=== PATIENT | male | born 1975 | race African-American/Black ===

== ENCOUNTER 2018-09-24 23:00 | Inpatient (IN) | payer OTHER ==
[~2018-09-24] VITALS: Ht 175.3 cm; Wt 65.0 kg
[2018-09-24 23:08] VITALS: Ht 175.3 cm; Wt 65.0 kg
--- NOTE | 2018-09-24 23:17 | NUR ---
PT HAS DISCREPANCY IN BLOOD PRESSURE IN EACH ARM MANUAL BP OF EACH UPPER EXTREMITY IN PROGRESS
--- NOTE | 2018-09-24 23:18 | NUR ---
88/58 MANUAL BP OF LEFT ARM BY ALISON HOWARD
--- NOTE | 2018-09-24 23:23 | NUR ---
88/60 LUE PER ALISON HOWARD
--- NOTE | 2018-09-24 23:23 | NUR ---
LAB AT BEDSIDE FOR BLOOD DRAW PT PROVIDED WITH WATER MD JACOBO STATED OKAY FOR PT TO HAVE WATER
--- NOTE | 2018-09-24 23:24 | NUR ---
PT PROVIDED WATER FOR HYDRATION IN ORDER TO GET PT TO PROVIDE URINE SAMPLE RUNNING BOLUS OF REMAINING FLUIDS PER MD BRACKEN TO INCREASE BP
--- NOTE | 2018-09-24 23:27 | NUR ---
PT PRESENTS TO ED VIA [facility] FROM HOME. 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 PER FAMILY PT HAS BEEN INCREASINGLY WEAK X2 DAYS HOWEVER THE LAST HOUR IT WAS MUCH WORSE. PT IS SPEAKING SLOW BUT IN COMPLETE SENTENCES. PT IS AXO X4. PT HAS EQUAL BUT LABORED CHEST RISE. 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 PT DENIES ANY PAIN AT THIS TIME. PT HAS YELLOWING OF THE WHITES OF THE EYES. PT DENIES ANY MEDICAL HX. PT ADMITS TO BEING A HEAVY DRINKER FOR MANY YEARS. PT DENIES DRINKING ANY ALOCOHOL TODAY PT ADMITS TO DRINKING MORE THAN 12 BEERS YESTERDAY. PT ALSO STATES HE SMOKES A PACK TO A HALF A PACK OF CIGARETTES A DAY FOR MORE THAN 15 YEARS. PT IS ALERT AND ORIENTED AND STATES HE IS UNSURE WHY HE FEELS SO WEAK. PT STATES LAST TIME HE WENT TO THE DR OFFICE WAS LAST YEAR.
--- NOTE | 2018-09-24 23:32 | NUR ---
PT SEEMS TO BE BECOMING INCREASINGLY MORE ALERT AND RESPONSIVE TO QUESTIONS. PT DRANK CUP OF WATER WITH EASE. BP SEEMS TO BE IMPROVING WITH FLUID ADMINISTRATION SEE VITALS
--- NOTE | 2018-09-24 23:33 | NUR ---
ALISON HOWARD AT BEDSIDE FOR MSE
--- NOTE | 2018-09-24 23:38 | NUR ---
XRAY AT BEDSIDE FAMILY AT BEDSIDE
[2018-09-24 23:45] LABS: BASOPHIL % 0.5 % (0-2)
--- NOTE | 2018-09-24 23:45 | NUR ---
DAD AT BEDSIDE
[2018-09-24 23:48] LABS: RED CELL DISTRIBUTION WIDTH 15.8 % (11.5-14.5)
[2018-09-24 23:51] LABS: PLATELET COUNT 27 x10^3mcL (130-400)
--- NOTE | 2018-09-25 00:01 | NUR ---
PT TAKEN TO RADIOLOGY
[2018-09-25 00:07] LABS: ALBUMIN 2.2 g/dL (3.4-5.0); ALKALINE PHOSPHATASE 55 U/L (46-116); ALT/SGPT 51 U/L (16-63); AST/SGOT 150 U/L (15-37); BILIRUBIN TOTAL 4.5 mg/dL (0.20-1.00); CALCIUM 7.7 mg/dL (8.5-10.1); CHLORIDE SERUM 95 mmol/L (98-107); CREATININE SERUM 2.4 mg/dL (0.7-1.3); GFR1 31 mL/min; GLUCOSE SERUM 200 mg/dL (74-106); SODIUM SERUM 133 mmol/L (136-145)
[2018-09-25 00:31] LABS: CARBON DIOXIDE 5.8 mmol/L (21-32)
--- NOTE | 2018-09-25 00:33 | NUR ---
DR JACOBO AT BEDSIDE TO DISCUSS PLAN OF CARE WITH PT
--- NOTE | 2018-09-25 01:15 | NUR ---
PT WENT POOP AND I TOLD MD JACOBO IT APPEARS TO BE BLACK AND TARRY OCCULT POOP SAMPLE WAS POSITIVE
--- NOTE | 2018-09-25 01:30 | NUR ---
PT COMPLAINING OF BEING REALLY DIZZY
--- NOTE | 2018-09-25 01:43 | NUR ---
MD JACOBO MADE AWARE OF PT TEMPERATURE AND LATEST BP
--- NOTE | 2018-09-25 01:43 | NUR ---
WARMING PROTOCOL BEING INITIATED
--- NOTE | 2018-09-25 02:08 | NUR ---
WARMING MEASURES IN PLACE MD JACOBO AT BEDSIDE DISCUSSING PLAN OF CARE WITH PT
[2018-09-25 02:14] LABS: UA SPECIFIC GRAVITY 1.025 (1.005-1.035); microscopic required? YES; urine erythrocyte 1+ (NEGATIVE)
--- NOTE | 2018-09-25 02:14 | NUR ---
PT TAKEN TO CT VIA [facility] ACCOMPANIED PT TO CT FOR FURTHER CARE AND MONITORING OF PT
[2018-09-25 03:05] LABS: CHOLESTEROL/HDL RATIO 12.5; MAGNESIUM 1.7 mg/dL (1.8-2.4)
[2018-09-25 03:13] LABS: FREE T4 0.94 ng/dL (0.76-1.46)
[2018-09-25 03:14] LABS: FREE THYROXINE INDEX 1.5 ug/dL (1.4-4.5); T4(THYROXINE) 4.3 ug/dL (4.7-13.3)
--- NOTE | 2018-09-25 03:17 | NUR ---
REPORT GIVEN TO LAURA HORTON
--- NOTE | 2018-09-25 03:35 | NUR ---
PT ARRIVED FROM ER ACCOMPANIED BY CLIFFORD GUTIERRES AND MILANA MADDEN. PT TRANSFERRED TO ICU BED 4 WITH FULL ASSIST TO BED, ATTACHED TO FULL RESPIRATORY CARE ASSISTANT AND PULSE OXIMETRY. PT AOX4 ABLE TO RESPOND TO COMMANDS, MAKE NEEDS KNOWN. GCS=15. PUPILS 3MM BRISK RESPONSE TO LIGHT B/L. NO REPORTED BARNETT, SPEECH CLEAR. NO FACIAL DROOP.TRACHEA MIDLINE, NO DRAINAGE TO EENT. NO EENT COMPLAINTS. PT HAS ICETRUS NOTED TO B/L EYES.LUNG SOUNDS CTAB, CHEST RISE/FALL SYMMETRIC, E/U BREATHING, NO ACUTE DISTRESS, DENIES SOB. NO COUGH. ON ROOM AIR.S1/S2 SOUNDS. DENIES CHEST PAIN.SKIN COLOR CONSISTENT WITH ETHNICITY, CAP REFILL <3 SEC X4, PULSES MODERATE X4 EXTREMITIES. NO EDEMA. LACTATED RINGERS INFUSING @ 250 ML/HR, VANCOMYCIN 1G IV INFUSING @ 166 ML/HR, SANDOSTATIN GTT INFUSING @ 50 MCG/HR FROM ER.GEN WEAKNESS, NO CONTRACTURES/DEFORMITIES NOTED. PT ABLE TO TURN AND REPOSITION SELF Q2H WITH ASSISTANCE. NO JOINT SWELLING OR TENDERNESS. BED REST AT THIS TIME. WARMING MEASURES INPLACE FOR PT'S RECTAL TEMP OF 93.0, WARMING BLANKET INPLACE. DR. RIBERA MADE AWARE.HYPOACTIVE BOWEL SOUNDS X4 QUADRANTS, ABD SOFT/ROUND, SYMMETRICAL. PT REPORTS LOOSE BM DARK STOOL IN ER.PT REPORTS BEING ABLE TO VOID WHEN IN ER, NO URINE AT THIS TIME. NO PENILE EDEMA OR DISCHARGE NOTED.SKIN INTACT, COOL/DRY TO TOUCH X4 EXTREMITIES. IV TO LEFT WRIST 22G, RAC 20 G, PORTS PATENT, NO S/S OF INFILTRATION, DRESSING CDI.PT CALM/COOPERATIVE WITH CARE. FAMILY SUPPORTIVE. HEAVY ALCOHOL ABUSE. NPO AT THIS TIME. NO S/S OF N/V. BED AT LOWEST SETTING, CALL LIGHT WITHIN REACH, HOB EELVATED 30 DEGREES. WILL CONT TO MONITOR.
--- NOTE | 2018-09-25 03:42 | NUR ---
DR. VALERO AND DR. BLANDON AT BEDSIDE FOR ASSESSMENT, SPEAKING WITH PT ON POC.
[2018-09-25 04:05] VITALS: BP 98/43
[2018-09-25 04:29] LABS: T3 TOTAL 0.47 ng/mL
--- NOTE | 2018-09-25 04:40 | NUR ---
IV INITIATED TO LFA 20G, PORT PATENT NO S/S OF INFILTRATION, DRESSING CDI, FLUSHED WITH 10 ML OF NS, +BLOOD RETURN.
--- NOTE | 2018-09-25 04:45 | NUR ---
ONE UNIT OF FFP INITIATED AT THIS TIME, VERIFIED BY 2 RNS. SEE BLOOD TRANSFUSION SHEET FOR VITALS. PT EDUCATED ON NOTIFYING NURSING STAFF OF ANY ADVERSE BLOOD TRANSFUSION ADVERSE REACTIONS.
--- NOTE | 2018-09-25 06:02 | NUR ---
DR. ROSENBERG AT BEDSIDE FOR ASSESSMENT. UPDATES PROVIDED, NO NEW ORDERS.
--- NOTE | 2018-09-25 06:10 | NUR ---
PT RECTAL TEMP 98.7 AT THIS TIME. WARMING MEASURES TURNED OFF, WARMING BLANKET REMOVED. DR. ROSENBERG MADE AWARE.
--- NOTE | 2018-09-25 06:12 | NUR ---
PT VOMITTED 200 CC OF DARK BROWN LIQUID, APPEARS TO BE COFFEE GROUND. GIVEN ZOFRAN PER EMAR. DR. ROSENBERG MADE AWARE AT NURSING STATION.
--- NOTE | 2018-09-25 06:50 | NUR ---
ONE UNIT FFP DONE AT THIS TIME. NO S/S OF ANY ADVERSE TRANSFUSION REACTION. SEE BLOOD TRANSFUSION RECORD FOR VITAL SIGNS.
--- NOTE | 2018-09-25 07:14 | NUR ---
GAVE REPORT TO CLIFFORD MULTANI. UPDATES GIVEN, QUESTIONS ANSWERED.
[2018-09-25 07:45] VITALS: BP 109/58
[2018-09-25 07:49] LABS: BILIRUBIN TOTAL 3.83 mg/dL (0.20-1.00); CALCIUM 6.5 mg/dL (8.5-10.1); CARBON DIOXIDE 15.5 mmol/L (21-32); CREATININE SERUM 1.7 mg/dL (0.7-1.3); MAGNESIUM 1.3 mg/dL (1.8-2.4); PHOSPHOROUS 2.2 mg/dL (2.5-4.9); POTASSIUM SERUM 4.6 mmol/L (3.5-5.1); TOTAL PROTEIN, SERUM 6.3 g/dL (6.4-8.2)
[2018-09-25 07:53] LABS: ALBUMIN 2.3 g/dL (3.4-5.0)
--- NOTE | 2018-09-25 08:17 | NUR ---
LAB CALLED WITH CRITICAL VALUE LACTIC ACID 9.7 WHICH IS TRENDING DOWN. WILL CONTINUE TO MONITOR.
--- NOTE | 2018-09-25 08:20 | NUR ---
PT HAD 1 EPISODE OF 400 ML DARK, COFFEEGROUND-LIKE EMESIS INTO EMESIS BAG.
--- NOTE | 2018-09-25 08:30 | NUR ---
RN ASSISTED PT ONTO BEDPAN. BLACK, TARRY STOOL NOTED.
--- NOTE | 2018-09-25 09:06 | NUR ---
RECEIVED CALL FROM ROSE, REQUESTED THAT PT REMAIN NPO FOR POSSIBLE EGD TODAY. WILL CARRY OUT.
--- NOTE | 2018-09-25 09:47 | NUR ---
DR. YEBOAH, RESIDENTS, SPECIAL EFFECTS MAKEUP ARTIST AND PRIMARY RN AT BEDSIDE FOR MORNING ROUNDS. PLAN OF CARE DISCUSSED WITH PT. WILL CONT TO MONITOR.
[2018-09-25 10:56] LABS: RED CELL DISTRIBUTION WIDTH 15.1 % (11.5-14.5)
[2018-09-25 10:58] LABS: PLATELET COUNT 51 x10^3mcL (130-400)
--- NOTE | 2018-09-25 11:42 | NUR ---
LAB CALLED WITH CRITICAL VALUE LACTIC ACID 6.8, TRENDING DOWN. WILL CONTINUE TO MONITOR.
[2018-09-25 12:00] VITALS: BP 105/63
--- NOTE | 2018-09-25 12:36 | NUR ---
DR. ROSE AND GI LAB TEAM COMPLETED EGD PROCEDURE. PT TOLERATED PROCEDURE WELL. WILL CONTINUE TO ASSESS AND MONITOR.
[2018-09-25 13:33] LABS: PATH REVIEW for HEMA YES
[2018-09-25 13:34] LABS: BAND NEUTROPHIL 8 % (0-10); MONOCYTE 9 % (0-7); SEGMENTED NEUTROPHILS 71 % (37-75)
[2018-09-25 13:35] LABS: PLATELET MORPHOLOGY LARGE PLATELET SEEN; rbc morphology (normal/abnorm) ABNORMAL (NORMAL)
--- NOTE | 2018-09-25 14:30 | NUR ---
CALLED DR. ROSE, LAB RESULTS PROVIDED. DR. ROSE REQUESTED THAT PT BE KEPT STRICT NPO.
[2018-09-25 14:39] LABS: AMPHETAMINE QUAL UR NONE DETECTED (See below)
[2018-09-25 15:50] VITALS: BP 120/72
--- NOTE | 2018-09-25 19:05 | NUR ---
RECEIVED REPORT FROM NERISSA HORTON AND ESTRELLITA HORTON. ASSUMING ALL CARE
[2018-09-25 19:45] VITALS: BP 107/65
--- NOTE | 2018-09-25 19:45 | NUR ---
RECEIVED PT LAYING IN BED. PT IS A/OX2, PT KNOWS HIS NAME AND LOCATION. PT ABLE TO FOLLOW SIMPLE COMMANDS AND MAKE NEEDS KNOWN. PUPILS WITH BRISK REACTION TO LIGHT, 3MM BILAT. EENT FREE OF DISCHARGE. ORAL MUCOSA PINK AND MOIST. NO JVD NOTED. EATHING IS E/U ON 2 LPM VIA NC. FINE CRACKLES NOTED TO BUL AND DIMIN BLL. SYMMETRICAL CHEST EXPANSION NOTED. S1/S2 HEART SOUNDS AUSCULTATED. CHEST WALL EQUAL AND SYMMETRICAL. HR 92, BP 107/57 MAP 77. PALPABLE PULSES X4 EXTREMITIES. SKIN IS WARM AND DRY. CAP REFILL < 3 SECS. NO EDEMA NOTED. LFA, LW, RAC IV IN PLACE. 0.45 NS WITH 1.2 AMPS OF BICARB INFUSING @ 100 ML/HR, PROTONIX GTT INFUSING @ 20 ML/HR. GENERALIZED WEAKNESS. PT ABLE TO REPOSITION SELF INDEPENDENTLY. NO JOINT SWELLING/DEFORMITY NOTED. PT IS NPO AT THIS TIME. ABD IS SOFT, ROUND, NONTENDER TO PALPATION. BOWEL SOUNDS ACTIVE X4 BOWEL SOUNDS HYPOACTIVE X4 QUADRANTS. NO BM NOTED. PT VOIDS FREELY VIA URINAL. NO SCROTAL EDEMA NOTED. ECCHYMOSIS NOTED TO RUE. PT ABLE TO REPOSITION SELF INDEPENDENTLY. IS CALM AT THIS TIME. BED IN LOW POSITION. CALL LIGHT IN REACH. WILL CONT TO MONITOR
--- NOTE | 2018-09-25 22:38 | NUR ---
PT IS RESTLESS AT THIS TIME, NOTED WITH TREMORS. PT REMOVING LINES, GOWN, AND EQUIPMENT. PT MEDICATED WITH ATIVAN PER EMAR. WILL CONT TO MONITOR
[2018-09-25 23:30] VITALS: BP 116/74
--- NOTE | 2018-09-26 01:17 | NUR ---
PT IS RESTLESS AT THIS TIME WITH NOTED TREMORS. PT MEDICATED WITH ATIVAN PER EMAR
[2018-09-26 03:09] VITALS: BP 130/81
--- NOTE | 2018-09-26 04:15 | NUR ---
PT WAS INCONTINENT X2. 16 FR NORRIS CATH PLACED AT THIS TIME PER MD ORDER USING STERILE TECHNIQUE. 250 ML OF PEEWEE COLORED URINE NOTED.
[2018-09-26 05:27] LABS: BASOPHIL % 2.5 % (0-2); PLATELET COUNT 19 x10^3mcL (130-400); RED CELL DISTRIBUTION WIDTH 14.8 % (11.5-14.5)
--- NOTE | 2018-09-26 06:15 | NUR ---
SPOKE TO PT'S DAUGHTER CELINE VIA TELEPHONE. UPDATED ON PT'S STATUS. ALL QUESTIONS/CONCERNS ADDRESSED.
--- NOTE | 2018-09-26 07:05 | NUR ---
REPORT GIVEN TO MADINA HORTON. ALL QUESTIONS/CONCERNS ADDRESSED AT THIS TIME. ENDORSING ALL CARE
[2018-09-26 07:28] LABS: ALBUMIN 2.3 g/dL (3.4-5.0); ALKALINE PHOSPHATASE 40 U/L (46-116); ALT/SGPT 96 U/L (16-63); AST/SGOT 270 U/L (15-37); CALCIUM 7.7 mg/dL (8.5-10.1); CARBON DIOXIDE 31.7 mmol/L (21-32); CHLORIDE SERUM 106 mmol/L (98-107); GFR1 > 60 mL/min; GLUCOSE SERUM 95 mg/dL (74-106); POTASSIUM SERUM 3.5 mmol/L (3.5-5.1); SODIUM SERUM 141 mmol/L (136-145); TOTAL PROTEIN, SERUM 6.6 g/dL (6.4-8.2)
[2018-09-26 07:53] VITALS: BP 126/88
[2018-09-26 12:15] VITALS: BP 132/80
--- NOTE | 2018-09-26 13:15 | NUR ---
Initial Nutrition Assessment: (IC04-A) HAYLEY GRAVES 43M Dx: Lactic acidosis, AMS, Gastrointe PMHx: Color blindness, Chronic alcoholism PSHx: None Labs: Alb 2.3 L, Ca 7.7 L, Bili T 4.2 H, AST 270 H, ALT 96 H, Alk Phos 40 L, LDH 380 H, Trig 164 H, HDL 10 L, Amylase 140 H, BNP 634.03 H, T4 4.3 L, TSH 5.5 H, PT 20.3 H, INR 2.1 H, PTT 35.6 H Meds: Cephulac, Folic acid, Phenergan, Pro-amatine, Protonix, Theragran, Vancomycin, Vit B1, Zofran Diet: NPO (pending EGD) PO intake since admission: NPO since admit Ht: 69in Wt: 143# BMI: 21.2 Bed scale: 153.7# IBW: 160# %IBW: 89% UBW: 170# Age: 43 Food Allergies: NKFA Skin: ecchymosis RUE, able to reposition self independently Deepak: 14 Edema: no edema noted GI: Abd soft, round, nontender to palpation, BS active x4 Last BM: 09/25, black tarry stool morning RD Note (09/26): Nursing trigger received for N/V/D >3d, poor PO >3d. Noted wt log 170# 09/24. Visited pt bedside, heavily slurred speech, pt noted w/ some missing teeth. Pt expressed he has poor appetite, but wants to know when he can start eating. GI eval planned via previous MD consult. Pt noted on aspiration precautions and fluid resuscitation. Pt initially may need intubation, but significantly improved since admission. Pt assessed w/ septic shock, alcohol cirrohosis, GI bleed per previous MD consult, monitored for alcohol withdrawal. Pt has noticed wt loss, states about 40# in past 3 months, UBW 170#. Pt noted 143# 09/26, 154# (bedscale) at this time. Problem with: N/V/D Problems with: Chewing: No Swallowing: No Current appetite: poor Recent wt change: -40# x 3mo, per pt %wt change: 23.5% Vitamin/Supplement use: No Special diet at home: Regular Physical activity: N/A Nutrition education given (specify specific nutrition education and handout given): None given at this time. Food-drug interactions? Education given? None given at this time. Estimated Nutritional Needs Based on current body weight (65kg) Energy: 4230-5909 kcal/day (30-35 kcal/kg to promote moderate wt gain, septic shock) Protein: 78-91 g/day (1.2-1.4 g/kg to preserve lean body mass) Fluid: 3034-2505 mL/day (1 mL/kcal) or per MD Nutrition Diagnosis: 1. Altered nutrition-related lab values r/t lactic acidosis, EtOH withdrawal, GI bleed AEB Bili T 4.2, AST 270, ALT 96, Alk Phos 40, LDH 380, Trig 164, HDL 10, Amylase 140, TSH 5.5, PT 20.3, INR 2.1 2. Altered GI function r/t GI bleed AEB NPO status since admission Intervention 1. Continue current plan of care and NPO until clear for diet per MD. Monitor/Evaluate Goal: PO intake at least 75% of estimated needs Monitor: PO intake, Labs, GI function F/U in 3-5 days as moderate risk 09/29-10/01
--- NOTE | 2018-09-26 13:16 | NUR ---
Recommendations: 1. Continue current plan of care and NPO until clear for diet per MD.
--- NOTE | 2018-09-26 14:46 | NUR ---
DR. COONEY (NEPHRO) AT BEDSIDE, ALL UPDATES PROVIDED, NO NEW ORDERS AT THIS TIME.
[2018-09-26 15:52] VITALS: BP 111/80
--- NOTE | 2018-09-26 17:14 | NUR ---
PATIENT HAS NOT BEEN ABLE TO DRINK TODAY. BLOODD SUGAR ASSESSED, AND STABLE READING 95. ENCOURAGED PATIENT TO DRINK FLUIDS. PATIENT ATTEMPTING TO DRINK FLUIDS AT THIS TIME. WILL CONTINUE TO MONITOR.
--- NOTE | 2018-09-26 19:09 | NUR ---
REPORT GIVEN TO CLIFFORD COYLE ALL QUESTIONS ANSWERED.
--- NOTE | 2018-09-26 19:30 | NUR ---
RECEIVED REPORT FROM CLIFFORD ALVAREZ. PT IS ALERT AND ORIENTED TO PERSON. PT HAS GARBLED SPEECH. PUPILS REACTIVE TO LIGHT. PT IS BREATHING E/U ON 3 L NC. S1 S2 HEART SOUNDS AUSCULTATED. LUNG SOUNDS CLEAR TO BILATERAL UPPER LOBES, DIMINISHED TO BILATERAL LOWER LOBES. PERIPHERAL IV TO LEFT FA, LEFT WRIST, RIGHT FA PATENT DRESSING CDI. 45% NS INFUSING AT 50 ML/HR, SODIUM BICARB INFUSING AT 100 ML/HR, AND PROTONIX INFUSING AT 10 ML/HR. PULSES MODERATE X4. CAP REFILL <3 SECONDS X4. SKIN WARM AND CONSISTENT WITH ETHNICITY. ABD IS SOFT AND FLAT WITH ACTIVE BOWEL SOUNDS. NORRIS DRAINING VIA GRAVITY. URINE IS YELLOW WITH FAIR OUTPUT. SCD IN PLACE. ALL QUESTIONS AND CONCERNS ANSWERED.
--- NOTE | 2018-09-26 21:00 | NUR ---
DR. SHEPARD AT BEDSIDE FOR UPDATES. ALL QUESTIONS AND CONCERNS ANSWERED.
[2018-09-27 04:55] LABS: RED CELL DISTRIBUTION WIDTH 15.6 % (11.5-14.5)
[2018-09-27 04:57] LABS: BASOPHIL % 2.1 % (0-2); PLATELET COUNT 16 x10^3mcL (130-400)
[2018-09-27 05:06] LABS: CALCIUM 7.7 mg/dL (8.5-10.1); CHLORIDE SERUM 102 mmol/L (98-107); CREATININE SERUM 0.9 mg/dL (0.7-1.3); GFR1 > 60 mL/min; GLUCOSE SERUM 83 mg/dL (74-106); SODIUM SERUM 141 mmol/L (136-145)
[2018-09-27 05:12] LABS: MAGNESIUM 1.6 mg/dL (1.8-2.4)
[2018-09-27 05:22] LABS: POTASSIUM SERUM 2.8 mmol/L (3.5-5.1)
--- NOTE | 2018-09-27 06:00 | NUR ---
PT HAD LOOSE DARK TARRY BM.ALL LINENS AND GOWN CHANGED. COLLECTED URINE CULTURE FOR URINALYSIS.
--- NOTE | 2018-09-27 06:39 | NUR ---
DR. CLARKE AT BEDSIDE FOR UPDATES. ALL QUESTIONS AND CONCERNS ANSWERED.
[2018-09-27 07:10] VITALS: BP 126/84
--- NOTE | 2018-09-27 07:10 | NUR ---
RECEIVED REPORT FROM LEONIDES HORTON. ALL QUESTIONS AND CONCERNS ADDRESSED. WILL RESUME CARE OF PT.
--- NOTE | 2018-09-27 07:31 | NUR ---
REPORT GIVEN TO RINA. ALL QUESTIONS AND CONCERNS ANSWERED.
[2018-09-27 07:40] LABS: microscopic required? YES; urine erythrocyte 2+ (NEGATIVE)
--- NOTE | 2018-09-27 10:05 | NUR ---
DR. YEBOAH AND RESIDENTS AT BEDSIDE ASSESSING PT. UPDATES PROVIDED. PT CAN BE TRANSFERRED TO TELE.
--- NOTE | 2018-09-27 11:16 | NUR ---
REPORT GIVEN TO REBEKAH HORTON. ALL QUESTIONS AND CONCERNS ADDRESSED. PT WILL BE GOING TO 242-A VIA BED.
--- NOTE | 2018-09-27 12:11 | NUR ---
PATIENT BEING TRANSFERRRED TO ROOM 242A. PATIENT REMOVED FROM ICU ADOBE CQ DEVELOPER AND PLACED ON TELE. PATIENT BEING TRANSFERRED WITH MEDS AND PERSONAL BELONGINGS (INCLUDING WALLET AND CELL PHONE) AT THIS TIME.
[2018-09-27 12:15] VITALS: BP 128/88
--- NOTE | 2018-09-27 12:15 | NUR ---
RECEIVED PT FROM ICU NURSE DROWSY. NO ACUTE DISTRES NOTED. TEMP 97.6 HR 71 BP 128/88 RR 17. RESP EVEN AND UNLABORED ON RA. 02 SAT 95% IVS INTACT AND PATENT. BED IN LOW POSITION. CALL LIGHT WITHIN REACH. WILL CONTINUE TO MONITOR.
--- NOTE | 2018-09-27 15:45 | NUR ---
PT RESTING IN BED TALKING WITH FAMILY MEMBERS. NO ACUTE DISTRESS NOTED. CALL LIGHT WITHIN REACH. WILL CONTINUE TO MONITOR.
[2018-09-27 16:47] VITALS: BP 157/104
[2018-09-27 18:00] VITALS: BP 125/62
--- NOTE | 2018-09-27 18:34 | NUR ---
PT LYING IN BED WITH NO ACUTE DISTRESS NOTED. IVS INTACT AND PATENT. NORRIS CATH IN PLACE DRAINING PEEWEE URINE. FAMILY MEMBER AT BEDSIDE. BED IN LOW POSITION. CALL LIGHT WITHIN REACH. WILL BE ENDORSED.
--- NOTE | 2018-09-27 19:20 | NUR ---
REC'D PT FROM DAY NURSE. PT RESTING IN BED WITH EYES CLOSED. DROWSY. AWAKENS WITH TACTILE STIMULI. ORIENTED TO SELF AND PLACE ONLY. REORIENTED TO TIME AND SITUATION. SPEECH GARBLED AND DIFFICULT TO UNDERSTAND. FOLLOWS COMMANDS. NO FACIAL DROOP. TELE 1. DENIES CP, DIZZINESS, OR PALPITATIONS. DENIES RESP DISTRESS OR SOB. BREATHING EVEN/UNLABORED ON RA. ABD SOFT/ROUND/NONTENDER. NORRIS DRAINING PEEWEE URINE TO GRAVITY. GEN WEAKNESS. ABLE TO MOVE EXTREMITIES AND REPOSITION SELF. IV TO LFA PATENT AND INFUSING. IV TO LW FLUSHED AND PATENT. SOME DRY BLOODY DRAINAGE TO LFA. CALL LIGHT WITHIN REACH, BED AT LOWEST POSITION. WILL CONTINUE TO MONITOR.
--- NOTE | 2018-09-27 20:22 | NUR ---
DR. WALLS AT NURSE'S STATION. WANTS TO CHECK POTASSIUM NOW. SPOKE TO DR. PATTERSON AND MADE AWARE. ALSO INFORMED OF MG 1.6 AND PHOS 2.0.
[2018-09-27 20:39] VITALS: BP 116/77
[2018-09-27 21:24] LABS: CALCIUM 7.4 mg/dL (8.5-10.1); CARBON DIOXIDE 32.5 mmol/L (21-32); CHLORIDE SERUM 102 mmol/L (98-107); CREATININE SERUM 0.8 mg/dL (0.7-1.3); GFR1 > 60 mL/min; GLUCOSE SERUM 75 mg/dL (74-106); SODIUM SERUM 138 mmol/L (136-145)
[2018-09-27 21:27] LABS: POTASSIUM SERUM 2.7 mmol/L (3.5-5.1)
--- NOTE | 2018-09-28 00:38 | NUR ---
REC'D CALL FROM DR. WALLS. INFORMED OF K 2.7 WITH 40 MEQ KCL CURRENTLY INFUSING. INSTRUCTED TO ORDER ANOTHER 20 MEQ IV AND RECHECK IN AM. AM BMP ALREADY ORDERED. DR. PATTERSON MADE AWARE VIA [employer].
--- NOTE | 2018-09-28 01:49 | NUR ---
PT HAD LARGE, LIQUID BLACK STOOL. PT CLEANED AND CHANGED. NORRIS CARE PROVIDED. PT STILL HAS GARBLED/INCOMPREHENSIBLE SPEECH. BREATHING EVEN/UNLABORED ON RA. CA. CALL LIGHT WITHIN REACH, BED AT LOWEST POSITION. WILL CONTINUE TO MONITOR.
--- NOTE | 2018-09-28 02:32 | NUR ---
PT RESTING IN BED WITH EYES CLOSED. QUIETLY SNORING. NO SIGNS OF DISTRESS NOTED. BREATHING EVEN/UNLABORED ON RA. CALL LIGHT WITHIN REACH, BED AT LOWEST POSITION.
[2018-09-28 05:30] VITALS: BP 115/81
[2018-09-28 05:46] LABS: CARBON DIOXIDE 31.1 mmol/L (21-32); CHLORIDE SERUM 103 mmol/L (98-107); CREATININE SERUM 0.7 mg/dL (0.7-1.3); GFR1 > 60 mL/min; GLUCOSE SERUM 76 mg/dL (74-106); MAGNESIUM 1.7 mg/dL (1.8-2.4); PHOSPHOROUS 2.7 mg/dL (2.5-4.9); POTASSIUM SERUM 3.5 mmol/L (3.5-5.1); SODIUM SERUM 139 mmol/L (136-145)
--- NOTE | 2018-09-28 06:33 | NUR ---
PT AWAKE AND RESTING IN BED. HR UP TO 140'S. PT WAS ATTEMPTING TO GET OOB. STATES HE WANTS TO USE THE RESTROOM AND WON'T MAKE IT TO THE URINAL. REORIENTED PT TO NORRIS CATHETER. PT MORE AWAKE. SPEECH REMAINS GARBLED BUT MORE COMPREHENSIBLE. BREATHING EVEN/UNLABORED ON RA. NO SIGNIFICANT CHANGES. CALL LIGHT WITHIN REACH, BED AT LOWEST POSITION, SIDE RAILS UP X3, BED ALARM ON. WILL ENDORSE TO DAY NURSE.
--- NOTE | 2018-09-28 07:15 | NUR ---
RECEIVED PT FROM SHIFT NURSE A/OX2 RESTING IN BED. NO ACUTE DISTRESS. IVS INTACT AND PATENT. NORRIS CATH IN PLACE. BED IN LOW POSITION. CALL LIGHT WITHIN REACH. WILL CONTINUE TO MONITOR.
[2018-09-28 07:30] LABS: RED CELL DISTRIBUTION WIDTH 15.7 % (11.5-14.5)
[2018-09-28 07:33] LABS: PLATELET COUNT 17 x10^3mcL (130-400)
--- NOTE | 2018-09-28 07:40 | NUR ---
MADE DR. CLARKE AWARE OF PLT 17.
[2018-09-28 08:25] VITALS: BP 123/75
--- NOTE | 2018-09-28 09:28 | NUR ---
PT AWAKE LYING IN BED. NO ACUTE DISTRESS NOTED. CALL LIGHT WITHIN REACH. WILL CONTINUE TO MONITOR.
[2018-09-28 10:44] LABS: BAND NEUTROPHIL 9 % (0-10); BASOPHIL 0 % (0-2); MONOCYTE 10 % (0-7)
[2018-09-28 10:45] LABS: SEGMENTED NEUTROPHILS 50 % (37-75)
[2018-09-28 10:48] LABS: PLATELET MORPHOLOGY PLATELETS DECREASED; rbc morphology (normal/abnorm) ABNORMAL (NORMAL)
[2018-09-28 10:49] LABS: target cell (codocyte) 1+
--- NOTE | 2018-09-28 12:54 | NUR ---
PT ASLEEP BUT AROUSABLE. NO ACUTE DISTRESS NOTED. CALL LIGHT WITHIN REACH. WILL CONTINUE TO MONITOR.
--- NOTE | 2018-09-28 15:22 | NUR ---
PT AWAKE LYING IN BED. NO ACUTE DISTRESS NOTED. CALL LIGHT WITHIN REACH. WILL CONTINUE TO MONITOR.
--- NOTE | 2018-09-28 18:17 | NUR ---
PT REMOVED IV FROM LFA. INSERTED NEW IV TO LFA 20G. IV INTACT AND PATENT. WILL CONTINUE TO MONITOR.
--- NOTE | 2018-09-28 18:23 | NUR ---
PT ASLEEP BUT AROUSABLE. NO ACUTE DISTRESS NOTED. IVS INTACT AND PATENT. NORRIS CATH IN PLACE. FALL PRECAUTIONS IN PLACE. BED ALARM ON. BED IN LOW POSITION. CALL LIGHT WITHIN REACH. WILL BE ENDORSED.
--- NOTE | 2018-09-28 19:20 | NUR ---
REC'D PT FROM DAY NURSE. PT RESTING IN BED WITH EYES CLOSED. DROWSY/LETHARGIC. OPENS EYES TO VERBAL STIMULI. SCLERA YELLOW TINGED. ORIENTED TO SELF AND PLACE. GARBLED, INCOMPREHENSIBLE SPEECH. VERY DIFFICULT TO UNDERSTANDING. FOLLOWS COMMANDS. TELE 1. DENIES CP, DIZZINESS, OR PALPITATIONS. DENIES RESP DISTRESS OR SOB. BREATHING EVEN/UNLABORED ON RA. ABD SOFT/ROUND. NO GRIMACE WITH PALPATION. NORRIS DRAINING PEEWEE URINE TO GRAVITY. GEN WEAKNESS. ABLE TO MOVE EXTREMITIES. PT EVAL. IV TO RFA AND LW PATENT AND INFUSING. IV TO LFA FLUSHED AND PATENT. SITES WNL. CALL LIGHT WITHIN REACH, BED AT LOWEST POSITION, BED ALARM ON, SIDE RAILS UP X3. WILL CONTINUE TO MONITOR.
[2018-09-28 20:28] VITALS: BP 138/85
--- NOTE | 2018-09-28 21:37 | NUR ---
PT AWAKE AND RESTING IN BED. DUE MEDS GIVEN. PT DRANK ONLY HALF OF THE LACTULOSE AND REFUSED THE OTHER HALF. REINFORCED PURPOSE OF AMMONIA AND INFORMED AMMONIA LEVEL MIGHT INCREASE IF PT DOES NOT TAKE THE LACTULOSE ORDERED. PT WAS TELLING ME TO DRINK THE LACTULOSE INSTEAD PT CURRENTLY DRINKING ENSURE AT BEDSIDE. WILL CONTINUE TO MONITOR.
--- NOTE | 2018-09-29 00:53 | NUR ---
PT RESTING IN BED WITH EYES CLOSED. NO SIGNS OF DISTRESS NOTED. BREATHING EVEN/UNLABORED ON RA. HOB UP 60 DEGREES. CALL LIGHT WITHIN REACH, BED AT LOWEST POSITION, BED ALARM ON. WILL CONTINUE TO MONITOR.
[2018-09-29 06:09] VITALS: BP 132/80
--- NOTE | 2018-09-29 06:09 | NUR ---
PT AWAKE AND RESTING IN BED. NO SIGNS OF DISTRESS NOTED. BREATHING EVEN/UNLABORED ON RA. PT AGREEABLE TO TAKE LACTULOSE THIS AM. SPEECH GARBLED BUT ABLE TO UNDERSTAND A BIT BETTER. SPEECH APPROPRIATE. NORRIS CARE PROVIDED. NO SIGNIFICANT CHANGES DURING SHIFT. CALL LIGHT WITHIN REACH, BED AT LOWEST POSITION, SIDE RAILS UP X3, BED ALARM ON. WILL ENDORSE TO DAY NURSE.
[2018-09-29 06:49] LABS: BASOPHIL % 0.9 % (0-2)
--- NOTE | 2018-09-29 06:54 | NUR ---
ASSISTED PT TO BSC TO HAVE BM. PT VERY UNSTEADY AND REQUIRED 2 PERSON ASSIST. LARGE LIQUID BLACK STOOL. PT BACK IN BED SAFELY.
[2018-09-29 07:12] LABS: PLATELET COUNT 20 x10^3mcL (130-400); RED CELL DISTRIBUTION WIDTH 16.1 % (11.5-14.5)
[2018-09-29 07:18] LABS: CALCIUM 8.6 mg/dL (8.5-10.1); CARBON DIOXIDE 30.6 mmol/L (21-32); CHLORIDE SERUM 101 mmol/L (98-107); CREATININE SERUM 0.8 mg/dL (0.7-1.3); GFR1 > 60 mL/min; GLUCOSE SERUM 79 mg/dL (74-106); MAGNESIUM 1.4 mg/dL (1.8-2.4); PHOSPHOROUS 3.6 mg/dL (2.5-4.9); POTASSIUM SERUM 3.5 mmol/L (3.5-5.1); SODIUM SERUM 140 mmol/L (136-145)
--- NOTE | 2018-09-29 07:22 | NUR ---
REPORT TAKEN FROM NEWS PRODUCTION SUPERVISOR NURSE AT THE BEDSIDE. PT RESTING, BUT WOKE FOR REPORT. IN NAD, DENIED PAIN. WILL CONTINUE TO MONITOR.
[2018-09-29 09:13] VITALS: BP 107/78
[2018-09-29 12:03] VITALS: BP 131/81
--- NOTE | 2018-09-29 14:34 | NUR ---
Follow-up Nutrition Assessment: ([id number]) HAYLEY GRAVES 43M Dx: Lactic acidosis, AMS, Gastrointe PMHx: Color blindness, chronic alcoholism Labs: BUN 6.0 L, Alb 2.3 L, Bili T 4.2 H, AST 270 H, ALT 96 H, Alk Phos 40 L, LDH 380 H, Trig 164 H, Mg 1.4 L, BNP 634.03 H, T4 4.3 L, TSH 5.5 H, PT 20.3 H, INR 2.1 H, PTT 35. 6 H Meds: Cephulac, Folic Acid, Mag-Ox, Mg Sulfate, Phenergan, Protonix, Theragran, Vncomycin, VitB1, Zofran, Diet: Full Liquid PO Intake: 65% (improving) Weights: 143# (09/27) 143# (09/26) 141# (09/25) 170# (09/24) I/Os: 120/1000 (09/30) 2630/3401 (09/29) 2170/2150 (09/28) 3497/3650 (09/27) Skin: Deepak: 14 Edema: none noted GI: Last BM: 09/28 RD Note (09/29): Consult received to evaluate nutrition status. Per GI consult, s/p EGD showed two Mallor Cárdenas tear (lower esophagus). Per previous MD progress note, pt w/ severe malnutrition - Alb 2.2, BMI 20.8. Ca and Phos levels now WNL, Mg continues to be low; BUN 14, Cr 1.7 H. Kidney function improving Nephrology. Per previous MD progress note CT abd, pt w/ mild cirrhosis, possible infectious colitis. Noted pt started on full liquid diet 09/26. Visited pt bedside, states appetite is good, but he just becomes full quickly. Pt denies any abd pain, chewing/swallowing difficulty or pain, and N/V/D/C at this time. Pt is requesting no dairy r/t indigestion. Pt would like to know when he can eat 'real food', explained to pt the reason for his full liquid diet order r/t upper GI bleed/recovery. Spoke w/ social work assistant Tri regarding pt having some questions regarding his health insurance. Estimated Nutritional Needs Based on current body weight (65 kg) Energy: 6411-2101 kcal/day (30-35 kcal/kg to promote moderate wt gain) Protein: 78-91 g/day (1.2-1.4 g/kg to preserve LBM) Fluid: 5705-2487 mL/day (1 mL/kcal) or per MD Nutrition Diagnosis: 09/26: Altered nutrition-related lab values r/t lactic acidosis, EtOH withdrawal, GI bleed, AEB Bili T 4.2, AST 27, ALT 96, Alk Phos 40, LDH 380, Trig 164, HDL 10, Amylase 140, TSH 5.5, PT 20.3 , INR 2.1 09/26: Altered GI function r/t GI bleed AEB NPO status since admission 09/29: Altered GI function r/t upper GI bleed AEB Libia Cárdenas Tear x2, need for Full liquid diet. Intervention: 1. Continue current plan of care and Full Liquid diet, advance per MD Monitor/Evaluate: Goal: Have pt meet at least 75% of estimated needs Monitor: PO intake, Labs, GI function F/U 2-3 in days as high risk 10/01-10/02
--- NOTE | 2018-09-29 14:34 | NUR ---
Recommendations: 1. Continue current plan of care and Full Liquid diet, advance per MD
[2018-09-29 17:16] VITALS: BP 130/88
--- NOTE | 2018-09-29 18:45 | NUR ---
PT TOLERATED TREATMENT WELL, WILL REPORT TO DRAFTING LAYOUT WORKER NURSE AND EDORSE CALL.
--- NOTE | 2018-09-29 19:19 | NUR ---
report given care endorsed
[2018-09-29 19:32] VITALS: BP 117/79
--- NOTE | 2018-09-29 20:00 | NUR ---
RECEIVED PT IN BED, CALM AND RESTING QUIETLY IN BED, WITH GARBLED SPEECH, ABLE TO FOLLOW SIMPLE COMMANDS.RESP. EVEN AND UNLABORED. ON ROOM AIR, LUNG SOUNDS CLEAR , NO ACUTE DISTRESS NOTED.AFEBRILE AND VITAL SIGNS STABLE. IVF, 1/2NS AT 50ML/HR, INTACT AND INFUSING WELL, SITE CLEAR. ALL IV SITES CLEAR AND INTACT. NORRIS CATH INTACT AND DRAINING PEEWEE COLOR URINE. HS CARE DONE. CALL LIGHT WITHIN REACH. WILL MAINTAIN FALL PREC AND WILL CONTINUE TO MONITOR.
--- NOTE | 2018-09-30 02:10 | NUR ---
RESTING QUIETLY IN BED WITH EYES CLOSED, APPEAS ASLEEP, EASILY AROUSABLE. RESP. EVEN AND UNLABORED. NO ACUTE DISTRESS NOTED. IVF INTACT AND INFUSING WELL, SITE CLEAR. WILL CONTINUE TO MONITOR.
[2018-09-30 05:25] VITALS: BP 124/81
--- NOTE | 2018-09-30 06:26 | NUR ---
CALM . NO AGITATION NOTED. ALERT AND ABLE TO FOLLOW SOME COMMANDS. RESP. EVEN AND UNLABORED. ON ROOM AIR , NO ACUTE DISTRESS NOTED. AFEBRILE AND VITAL SIGNS STABLE. DUE MEDS GIVEN ORDERED, TAYLOR. WELL. IVF INTACT AND INFUSING WELL. NORRIS CATH INTACT AND PATENT. FALL PREC. MAINTAINED. KEPT COMFORTABLE. WILL ENDORSE TO INCOMING NURSE.
--- NOTE | 2018-09-30 07:10 | NUR ---
RECEIVED PT FROM EMELI DAVIES. PT FOUND RESTING WITH BOTH EYES CLOSED. EASILY AROUSABLE TO VERBAL STIMULI. NO S/S OF ACUTE DISTRESS. NO S/S OF PAIN. CALM/COOPERATIVE AT THIS TIME. NORRIS IN TACT DRAINING TO GRAVITY. NO DEPENDENT LOOPS. IVS WNL TO RFA, LFA, AND LW. IV FLUIDS FLOWING. NO SOB ON ROOM AIR. NO CHEST PAIN. FALL PREC IN PLACE, BED ALARM ON. SIDE RAILS UP X2. BED IN LOW POSITION. CALL LIGHT WITHIN REACH. WILL CONTINUE TO MONITOR.
[2018-09-30 09:08] LABS: BASOPHIL % 0.9 % (0-2)
[2018-09-30 09:13] LABS: CALCIUM 8.7 mg/dL (8.5-10.1); CARBON DIOXIDE 30.5 mmol/L (21-32); CHLORIDE SERUM 104 mmol/L (98-107); GFR1 > 60 mL/min; GLUCOSE SERUM 114 mg/dL (74-106); MAGNESIUM 1.4 mg/dL (1.8-2.4); PHOSPHOROUS 2.7 mg/dL (2.5-4.9); POTASSIUM SERUM 3.4 mmol/L (3.5-5.1); RED CELL DISTRIBUTION WIDTH 16.2 % (11.5-14.5); SODIUM SERUM 141 mmol/L (136-145)
[2018-09-30 09:15] LABS: PLATELET COUNT 23 x10^3mcL (130-400)
[2018-09-30 09:40] VITALS: BP 101/63
--- NOTE | 2018-09-30 11:44 | NUR ---
PT LAYING IN BED. AA/OX4. NO S/S OF ACUTE DISTRESS. NO COMPLAINT OF PAIN. NO SOB ON ROOM AIR. IVS WNL, IV FLUIDS FLOWING. AMBULATED WITH PT. TOLERATED ACTIVITY WELL. NO PAIN, NO SOB ON ROOM AIR, NO CHEST PAIN. CALM/COOPERATIVE. FALL PREC IN PLACE. BED ALARM ON. BED IN LOW POSITION. CALL LIGHT WITHIN REACH. WILL CONTINUE TO MONITOR.
--- NOTE | 2018-09-30 16:31 | NUR ---
PHYSICAL THERAPY DAILY NOTES CO-SIGN All documentation done by the Small Machine Bindery Operator for 09/30/18 has been reviewed. I agree with the documentation. Reviewed/Co-Signed by: Cathleen Hancock PT Documentation Done by:JAQUELIN RUIZ PTA
--- NOTE | 2018-09-30 18:28 | NUR ---
PT SITTING AT SIDE OF BED EATING DINNER. NO S/S OF ACUTE DISTRESS. NO SOB ON ROOM AIR. NO COMPLAINT OF PAIN. NO CHEST PAIN. CALM/COOPERATIVE. FALL PREC IN PLACE. NO TREMORS NOTED. NO BARNETT. NO DIZZINESS AT THIS TIME. IVS WNL TO LW/RFA. MAGNESIUM RIDER RUNNING TO LW. PATENT AND FLUSHES WELL. BED IN LOW POSITION. CALL LIGHT WITHIN REACH. FALL PREC IN PLACE. WILL ENDORSE TO ONCOMING SHIFT.
[2018-09-30 18:39] VITALS: BP 124/89
--- NOTE | 2018-09-30 20:00 | NUR ---
RECEIVED PT IN BED, RESTING QUIETLY. A/O X2. ABLE TO FOLLOW SIMPLE COMMANDS.DENIES HEADACHE/DIZZINESS. NO TREMORS NOTED. RESP. EVEN AND UNLABORED. NO ACUTE DISTRESS NOTED. HL X2, INTACT AND PATENT. NORRIS CATH INTACT AND DRAINING PEEWEE COLOR URINE. ABLE TO MOVE ALL EXTS.HS CARE DONE. CALL LIGHT WITHIN REACH. WILL CONTINUE TO MONITOR.
[2018-09-30 20:44] VITALS: BP 106/61
--- NOTE | 2018-10-01 01:00 | NUR ---
NO COMPLAINTS NOTED. RESTING QUIETLY IN BED, WITH EYES CLOSED, EASILY AROUSABLE. RESP. EVEN AND UNLABORED. NO ACUTE DISTRESS NOTED. FALL PREC. IN PLACE. WILL CONTINUE TO MONITOR.
[2018-10-01 06:06] VITALS: BP 112/81
--- NOTE | 2018-10-01 06:20 | NUR ---
NO COMPLAINTS NOTED. SLEPT WELL. NO AGITATION OR TREMORS NOTED. RESP. EVEN AND UNLABORED. ON ROOM AIR, NO ACUTE DISTRESS NOTED. AFEBRILE AND VITAL SIGNS STABLE. ABLE TO TURN AND REPOSITION SELF IN BED. NORRIS CATH INTACT AND PATENT. DUE MEDS GIVEN ORDERED, TAYLOR. WELL. FALL PRECAUTIONS MAINTAINED. WILL ENDORSE TO INCOMING NURSE.
--- NOTE | 2018-10-01 07:15 | NUR ---
ASSUMED CARE OF PATIENT. SEEN ALERT AND AWAKE THIS MORNING WITH SLURRED SPEECH. ALERT AND ORIENTED TO PERSON AN DPLACE. NO COMPLAINTS OF PAIN THIS AM. NORRIS CATHTER INTACT, DRAINING PEEWEE URINE. IV ON LW AND RFA SALINE LOCKED. WILL CONTINUE TO MONITOR.
--- NOTE | 2018-10-01 09:31 | NUR ---
PATIENT SEEN SLEEPING WITH EQUAL AND UNLABORED RESPIRATIONS. NO APPARENT DISTRESS NOTED.
[2018-10-01 09:54] VITALS: BP 123/75
--- NOTE | 2018-10-01 10:58 | NUR ---
BLADDER TRAINING INITIATED FOR NORRIS CATHTER D/C.
--- NOTE | 2018-10-01 11:17 | NUR ---
PATIENT REQUESTING TO HOME INSTEAD OF HALFWAY. CASE MANAGEMENT ELDA NOTIFIED.
[2018-10-01 11:22] LABS: CALCIUM 8.8 mg/dL (8.5-10.1); CARBON DIOXIDE 26.1 mmol/L (21-32); CHLORIDE SERUM 107 mmol/L (98-107); GFR1 > 60 mL/min; GLUCOSE SERUM 106 mg/dL (74-106); MAGNESIUM 1.6 mg/dL (1.8-2.4); PHOSPHOROUS 2.3 mg/dL (2.5-4.9); POTASSIUM SERUM 3.6 mmol/L (3.5-5.1); SODIUM SERUM 142 mmol/L (136-145)
[2018-10-01 11:24] LABS: RED CELL DISTRIBUTION WIDTH 17.1 % (11.5-14.5)
[2018-10-01 11:47] LABS: BAND NEUTROPHIL 1 % (0-10); BASOPHIL 0 % (0-2); MONOCYTE 8 % (0-7); SEGMENTED NEUTROPHILS 46 % (37-75)
[2018-10-01 11:48] LABS: PLATELET MORPHOLOGY PLATELETS DECREASED; rbc morphology (normal/abnorm) ABNORMAL (NORMAL)
[2018-10-01 11:56] LABS: PLATELET COUNT 25 x10^3mcL (130-400)
--- NOTE | 2018-10-01 15:14 | NUR ---
PATIENT IN ROOM SITTING IN CHAIR WATCHING TV. PATIENT OCCASIONALLY ATTEMPS TO AMBULATE TO [facility] ON HIS OWN, CONTINUES TO HAVE GENEARLIZED WEAKNESS AND UNSTEADINESS, REQUIRES FREQUENT REMINDERS TO ASK FOR ASSISTANCE WHEN TRANSEFRRING TO [facility]. CONTINUES TO HAVE LOOSE BROWN STOOLS.
--- NOTE | 2018-10-01 15:49 | NUR ---
PHYSICAL THERAPY DAILY NOTES CO-SIGN All documentation done by the Clinical Services Manager for 10/01/18 has been reviewed. I agree with the documentation. Reviewed/Co-Signed by: Cathleen Hancock PT Documentation Done by:JAQUELIN RUIZ PTA
--- NOTE | 2018-10-01 16:06 | NUR ---
IV'S FLUSHED. LW AND RFA PATENT.
[2018-10-01 16:31] VITALS: BP 105/70
--- NOTE | 2018-10-01 17:20 | NUR ---
PATIENT SEEN RESTING IN BED WITH FAMILY AT BEDSIDE. NO COMPLAINTS OF PAIN OR DISCOMFORT. NO APPARENT DISTRESS NOTED.
--- NOTE | 2018-10-01 18:43 | NUR ---
PATIENT SEEN RESTING IN BED WTIH NO COMPLAINTS OF PAIN OR DISCOMFORT. NO APPARENT DISTRESS NOTED. IV ON LW AND RFA REMAINS SALINE LOCKED AT THIS TIME. WILL ENDORSE CARE TO ONCOMING RN.
--- NOTE | 2018-10-01 20:00 | NUR ---
PT ASKING FOR IMODIUM FOR LOOSE STOOL, EXPLAINED WHY HE HAS EPISODES OF LOOSE STOOL, PT ON LACTULOSE FOR ELEVATED AMMONIA LEVEL, PT STILL FRUSTRATED WHY HE CAN'T HAVE IMODIUM TO STOP LOOSE STOOL, BED ALARM ON, HAS EPISODES OF GETTING OOB, IV ACCESS LW AND RFA PATENT ON HEPLOCK FLUSHED WELL, PT DENIES ANY PAIN, NO DISTRESS, LUNGS CTA, SHIFT ASSESSMENT DONE, ATTENDED NEEDS CALL LIGHT AT REACH, WILL MONITOR.
[2018-10-01 20:51] VITALS: BP 110/70
--- NOTE | 2018-10-02 02:00 | NUR ---
NO SIGNIFICANT CHANGES, ASLEEP, BED ALARM ON, CHECKED AT INTERVALS.
[2018-10-02 06:16] VITALS: BP 121/83
--- NOTE | 2018-10-02 06:31 | NUR ---
PT SLEPT WELL DURING THE SHIFT, HAS SOME EPISODES OF TRYING TO GET OOB, MORE COHERENT AND FOLLOWS COMMANDS, DENIES PAIN, NO DISTRESS, TOOK AM MEDS, PT EPISODES OF LOOSE STOOL, USES URINALS, CONT TO MONITOR.
[2018-10-02 06:58] LABS: CALCIUM 8.7 mg/dL (8.5-10.1); CARBON DIOXIDE 24.6 mmol/L (21-32); CHLORIDE SERUM 105 mmol/L (98-107); CREATININE SERUM 0.8 mg/dL (0.7-1.3); GFR1 > 60 mL/min; GLUCOSE SERUM 83 mg/dL (74-106); MAGNESIUM 1.5 mg/dL (1.8-2.4); PHOSPHOROUS 2.2 mg/dL (2.5-4.9); POTASSIUM SERUM 4.3 mmol/L (3.5-5.1); SODIUM SERUM 139 mmol/L (136-145)
--- NOTE | 2018-10-02 07:44 | NUR ---
AAO TIMES 4. MED SURG PATIENT. LUNGS CTA. NO SOB. O2 SATON RA 99%. BS'S ACTIVE TIMES 4. BACH WITH GENERALIZED WEAKNESS. PERIPHERAL PULSES PALPABLE. NO EDEMA. NO C/O PAIN. COOPERATIVE. SITTING ON SIDE OF BED, BED ALARM ON. FALL PRECAUTIONS.
[2018-10-02 08:17] LABS: PLATELET COUNT 31 x10^3mcL (130-400); RED CELL DISTRIBUTION WIDTH 17.2 % (11.5-14.5)
[2018-10-02 09:25] VITALS: BP 98/63
[2018-10-02 09:40] LABS: BAND NEUTROPHIL 0 % (0-10); BASOPHIL 0 % (0-2); MONOCYTE 21 % (0-7); SEGMENTED NEUTROPHILS 38 % (37-75)
[2018-10-02 09:42] LABS: PLATELET MORPHOLOGY LARGE PLATELET SEEN; rbc morphology (normal/abnorm) ABNORMAL (NORMAL); target cell (codocyte) 2+
[2018-10-02] MEDS ORDERED: LAC30L PO (12:16)
[2018-10-02] MEDS ORDERED: MAG PO (12:17)
[2018-10-02] MEDS ORDERED: FOL1 PO (12:18)
[2018-10-02] MEDS ORDERED: THI100 PO (12:19)
[2018-10-02 12:59] VITALS: BP 98/63
--- NOTE | 2018-10-02 14:40 | NUR ---
REMOVED SALINE LOCKS TO LFA AND RFA ANGIO INTACT. GAVE DISCHARGE INSTRUCTIONS TO BOTH THE PATIENT AND HIS FATHER. THEY VERBALIZED "I UNDERSTAND" TO ALL INSTRUCTIONS.
--- NOTE | 2018-10-02 16:23 | NUR ---
PHYSICAL THERAPY DAILY NOTES CO-SIGN All documentation done by the Flat Finisher for 10/02/18 has been reviewed. I agree with the documentation. Reviewed/Co-Signed by: Cathleen Hancock PT Documentation Done by:JAQUELIN RUIZ PTA
== END 2018-10-02 14:41 | disposition home health service (06) | DRG 720 ==
LOC: ED 23:00 → IC 09-25 02:03 → DU 09-27 12:23 → MU 09-29 11:30
PROVIDERS: Emergency Medicine; Internal Medicine; Internal Medicine Nephrology; ADMIT Internal Medicine
PROC: 30233R1 Transfusion of Nonautologous Platelets into Peripheral Vein, Percutaneous Approach (ICD-10-PCS; 2018-09-25)
PROC: 0DJ08ZZ Inspection of Upper Intestinal Tract, Via Natural or Artificial Opening Endoscopic (ICD-10-PCS; 2018-09-25)
PROC: 30233K1 Transfusion of Nonautologous Frozen Plasma into Peripheral Vein, Percutaneous Approach (ICD-10-PCS; principal; 2018-09-25 12:30)
DX: A41.9 Sepsis, unspecified organism (principal); K72.00 Acute and subacute hepatic failure without coma; N17.0 Acute kidney failure with tubular necrosis; R65.21 Severe sepsis with septic shock; E43 Unspecified severe protein-calorie malnutrition; G93.41 Metabolic encephalopathy; K22.6 Gastro-esophageal laceration-hemorrhage syndrome; I85.11 Secondary esophageal varices with bleeding; D69.59 Other secondary thrombocytopenia; E83.42 Hypomagnesemia; E87.2 Acidosis; H53.50 Unspecified color vision deficiencies; E83.51 Hypocalcemia; E87.1 Hypo-osmolality and hyponatremia; F10.239 Alcohol dependence with withdrawal, unspecified; K70.30 Alcoholic cirrhosis of liver without ascites; K52.9 Noninfective gastroenteritis and colitis, unspecified; I10 Essential (primary) hypertension; Y90.0 Blood alcohol level of less than 20 mg/100 ml; F17.210 Nicotine dependence, cigarettes, uncomplicated; Z68.23 Body mass index [BMI] 23.0-23.9, adult; Z82.49 Family history of ischemic heart disease and other diseases of the circulatory system; Z83.3 Family history of diabetes mellitus
CPT/HCPCS: 36600; 43235; 82962; 83880; 84439; 85060; 85378; 97110-GP; 97116-GP; 97530-GP; C9113; G0378; G0480; J0171; J1200; J1610; J2060; J2250; J2310; J2354; J2405; J2543; J3010; J3370; J3411; J3430; J3475; J3480; J3490; J7030; J7040; J7050; J7120; P9035; P9047; P9059; Q0092

== ENCOUNTER 2019-01-15 09:18 | Inpatient (IN) | payer OTHER ==
[~2019-01-15] VITALS: Ht 175.3 cm; Wt 61.3 kg
[~2019-01-15 09:18] MED LIST: FOL1 PO; LAC30L PO; MAG PO; THI100 PO
[2019-01-15 09:22] VITALS: Ht 175.3 cm; Wt 61.3 kg
--- NOTE | 2019-01-15 09:30 | NUR ---
PT PRESENTS TO ED WITH C/O VOMITING BLOOD MULTIPLE TIMES THIS MORNING. PT REPORTS HAVING HX OF LIVER CIRRHOSIS AND STS HE WAS DRINKING BEERS LAST NIGHT. PT UNABLE TO STATE HOW MANY BEERS HE CONSUMED. PER EMS PT HAD TWO EPISODES OF VOMITING BRIGHT RED BLOOD IN ROUTE TO HOSPITAL. EMS STS PT WAS GIVEN 4MG ZOFRAN IN ROUTE TO ED. PT REPORTS EPIGASTRIC DISCOMFORT, AND MILD SOB. EMS ALSO REPORT PT BP 88/51 AND TACHYCARDIC IN ROUTE TO HOSPITAL. PT AAOX4, RESP E/U, ON FULL CM, WILL CONTINUE TO MONITOR.
--- NOTE | 2019-01-15 10:30 | NUR ---
PT VOMITED UP APPROX 200ML TOTAL EMESIS. SOME BRIGHT RED BLOOD NOTED IN EMESIS. PT ON FULL CM, AAOX4, ANSWERING QUESTIONS IN FULL CLEAR SENTENCES, RESP E/U, C/O CHILLS, WILL CONTINUE TO MONITOR.
[2019-01-15 10:31] LABS: BASOPHIL % 0.2 % (0-2)
[2019-01-15 10:35] LABS: RED CELL DISTRIBUTION WIDTH 15.8 % (11.5-14.5)
[2019-01-15 10:36] LABS: CALCIUM 7.6 mg/dL (8.5-10.1); CARBON DIOXIDE 16.7 mmol/L (21-32); CHLORIDE SERUM 106 mmol/L (98-107); CREATININE SERUM 0.8 mg/dL (0.7-1.3); GFR1 > 60 mL/min; GLUCOSE SERUM 90 mg/dL (74-106); POTASSIUM SERUM 4.1 mmol/L (3.5-5.1); SODIUM SERUM 144 mmol/L (136-145)
[2019-01-15 10:37] LABS: PLATELET COUNT 37 x10^3mcL (130-400)
[2019-01-15 10:40] LABS: ALKALINE PHOSPHATASE 71 U/L (46-116); ALT/SGPT 36 U/L (16-63); AST/SGOT 85 U/L (15-37); BILIRUBIN TOTAL 2.06 mg/dL (0.20-1.00); LIPASE 226 IU/L (73-393); TOTAL PROTEIN, SERUM 6.5 g/dL (6.4-8.2)
--- NOTE | 2019-01-15 12:05 | NUR ---
PT CONTINUOUSLY VOMITING BLOOD, DR. BECK MADE AWARE.
--- NOTE | 2019-01-15 13:18 | NUR ---
PT LAYING ON GURNEY IN POSITION OF COMFORT, AAXO4, RESP E/U, WILL CONTINUE TO MONITOR.
[2019-01-15 13:37] LABS: BASOPHIL % 0 % (0-2); PLATELET COUNT 35 x10^3mcL (130-400); RED CELL DISTRIBUTION WIDTH 16.1 % (11.5-14.5)
--- NOTE | 2019-01-15 14:05 | NUR ---
PRBC INFUSION STARTED. PRBC'S 300ML GOING AT 125ML/HR. PT AAOX4, RESP E/U, NO ACUTE DISTRESS NOTED AT THIS TIME. PT ON FULL CM, WILL CONTINUE TO MONITOR.
--- NOTE | 2019-01-15 14:20 | NUR ---
NO ADVERSE REACTIONS NOTED 15MINS AFTER PRBC TRANSFUSION BEGAN. PT AAOX4, RESP E/U, NAD NOTED. WILL CONTINUE TO MONITOR.
[2019-01-15 14:57] LABS: microscopic required? NO
--- NOTE | 2019-01-15 15:13 | NUR ---
ROSS (BROTHER) [phone] CELL [phone] CELL (HARDY, FATHER)
--- NOTE | 2019-01-15 15:15 | NUR ---
REPORT GIVEN TO CLIFFORD MOORE ON ICU TO ASSUME CARE OF PT.
[2019-01-15 15:16] LABS: UA SPECIFIC GRAVITY 1.025 (1.005-1.035); urine erythrocyte NEGATIVE (NEGATIVE)
[2019-01-15 15:34] LABS: AMPHETAMINE QUAL UR NONE DETECTED (See below)
--- NOTE | 2019-01-15 15:45 | NUR ---
BLOOD TRANSFUSION COMPLETED. NO S/S OF REACTION.
--- NOTE | 2019-01-15 16:00 | NUR ---
REC PT FROM E.R. A/O X4/ TREMORS NOTED TO DUE ETOH WITHDRAWAL, PER PT DRINKS MORE THAN 6 PACK A BEER A DAY AND SMOKES 1/2 PACK OF CIGARETTES DAILY SINCE WAS TEENAGER. BREATHING EVEN AND UNLABORED ON RA, NO ACUTE RESP DISTRESS OR SOB NOTED. TREMORS NOTED, C/O N/V , MEDICATED PER EMAR. ST SHOWING HR 117, BP 124/78 MAP 86, 02 AT 100% RA, RESP 12, 0/10 PAIN.BOWEL SOUNDS ACTIVE IN ALL FOUR QUADS, HAD ONE DARK BM. VOIDS USING URINAL, 100ML/DARK URINE NOTED. IV TO THE LAC INTACT AND PATENT REC SANDOSTATIN IV AT ML/HR/TOERATING WELL. PT REC UNIT [facility] BED IN LOW POSITION, X2 SIDE RAIL UP. WILL CONTINUE TO MONITOR.
[2019-01-15 16:20] VITALS: BP 124/78
--- NOTE | 2019-01-15 16:55 | NUR ---
SECOND UNIT OF TWO PRBC'S STARTED AT THIS TIME AT 75 ML/HR. TWO NURSE CHECK BY MYSELF AND CLIFFORD PAINTER PRIOR TO STARTING THE TRANSFUSION. PRE VITALS AT 1655: TEMP 98.6 F, HR 123, NIBP 120/69, RR 17 AND 100% ON RA. WILL CONTINUE TO MONITOR.
--- NOTE | 2019-01-15 17:10 | NUR ---
THE UNIT OF PRBC'S REMAINS INFUSING, THE RATE INCREASED FROM 75 TO 150 ML/HR. 15 MIN VITALS: TEMP 99.3 F, HR 125, NIBP 99/56, RR 12 AND 02 SAT 97%. NO SIGNS OF ADVERSE REACTION. WILL CONTINUE TO MONITOR.
--- NOTE | 2019-01-15 19:00 | NUR ---
REPORT GIVEN TO CLIFFORD SANCHEZ FOR CONTINUED CARE. PT LAYING IN BED RESTING, BREATHING EVEN AND UNLABORED ON RA, NO ACUTE RESP DISTRESS OR SOB NOTED. DENIES ANY NV, MEDICATED PER EMAR. BLOOD TRANFUSION CURRENTLY INFUSING AT 100ML/HR/ TOLERATING WELL. ENDORSED.
[2019-01-15 19:15] VITALS: BP 130/78
--- NOTE | 2019-01-15 19:15 | NUR ---
RECEIVED PT AWAKE/ALERT TO STIMULI, SEIZURE PRECAUTIONS INTACT, NO ACUTE DISTRESS, NO SOB, ON ROOM AIR. 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 INFUSING SANDOTATIN GTT, D5 NS GTT AND BLOOD TRANSUFSION GTT PER HOSPITAL PROTOCOL, PER EMAR. BED AT LWOE SETTING, CALL LIGHT WITHIN REACH, HOB ELEVATED 30 DEGREES. WILL CONT TO MONITOR.
--- NOTE | 2019-01-15 20:29 | NUR ---
PT REPORTING NAUSEA. ADMINISTERING ZOFRAN PER EMAR.
--- NOTE | 2019-01-15 20:31 | NUR ---
PRBC INFUSION FINISHED AT THIS TIME. NO S/S OF ANY ADVERSE TRANSFUSION REACTION, PT DENIES WELL. TEMP 98.4, PULSE 120, NIBP, 106/59, RESP 14, PO2 97% ROOM AIR.
--- NOTE | 2019-01-15 20:45 | NUR ---
PLATLET TRANSFUSION INITIATED AT THIS TIME, PT EDUCATED ON ANY ADVERSE REACTIONS. PT VERBALIZES UNDERSTANDING TO LET NURSING STAFF AWARE. TEMP 98.8, PULSE 116, NIBP 121/68, RESP 16, PO2 99% ON ROOM AIR.
--- NOTE | 2019-01-15 21:00 | NUR ---
PLATELET INFUSION 15 MIN, NO S/S OF ANY ADVERSE REACTION, PT DENIES. TITRATED PLATLET INFUSION PER HOSPITAL PROTOCOL. TEMP 98.4, PULSE 109, NIBP 119/70, RESP 14, PO2 98% ROOM AIR.
--- NOTE | 2019-01-15 21:01 | NUR ---
PT HAS NOTED MILD TREMORS NOTED TO HANDS. WILL ADMINSTER ATIVAN PER EMAR.
[2019-01-15 21:23] LABS: BASOPHIL % 0.3 % (0-2)
[2019-01-15 21:36] LABS: RED CELL DISTRIBUTION WIDTH 15.4 % (11.5-14.5)
[2019-01-15 21:37] LABS: PLATELET COUNT 23 x10^3mcL (130-400)
[2019-01-15 23:03] VITALS: BP 121/75
--- NOTE | 2019-01-15 23:25 | NUR ---
PLATLET INFUSION FINISHED AT THIS TIME. NO S/S OF ADVERSE BLOOD TRANSFUSION REACTION, PT DENIES WELL. POST VITALS TEMP 97.7, PULSE 109, NIBP 120/70, RESP 14, O2 99% ROOM AIR. PT IN NO ACUTE DISTRESS, DENIES PAIN AT THIS TIME.
--- NOTE | 2019-01-16 00:33 | NUR ---
PT HAD 200 ML OF BLOODY BLACK TARRY LIQUID STOOL. PT CLEANED, PERIAREA CLEANED. CHUCKS, GOWN, LINEN CHANGED AT THIS TIME.
[2019-01-16 01:16] LABS: BASOPHIL % 0.4 % (0-2)
[2019-01-16 01:47] LABS: PLATELET COUNT 51 x10^3mcL (130-400); RED CELL DISTRIBUTION WIDTH 15.7 % (11.5-14.5)
[2019-01-16 03:03] VITALS: BP 122/76
--- NOTE | 2019-01-16 05:31 | NUR ---
DR. HEATON AT BEDSIDE FOR ASSESSMENT. NO NEW ORDERS AT THIS TIME.
[2019-01-16 05:42] LABS: BASOPHIL % 0.6 % (0-2)
[2019-01-16 05:53] LABS: CALCIUM 7.1 mg/dL (8.5-10.1); CARBON DIOXIDE 29.6 mmol/L (21-32); CHLORIDE SERUM 113 mmol/L (98-107); CREATININE SERUM 0.6 mg/dL (0.7-1.3); GFR1 > 60 mL/min; GLUCOSE SERUM 128 mg/dL (74-106); MAGNESIUM 1.2 mg/dL (1.8-2.4); PHOSPHOROUS 1.8 mg/dL (2.5-4.9); POTASSIUM SERUM 3.7 mmol/L (3.5-5.1); SODIUM SERUM 147 mmol/L (136-145)
--- NOTE | 2019-01-16 05:57 | NUR ---
DR. HEATON MADE AWARE OF PT'S MAGNESIUM OF 1.2 AT NURSING STATION.
[2019-01-16 06:07] LABS: PLATELET COUNT 51 x10^3mcL (130-400); RED CELL DISTRIBUTION WIDTH 16.3 % (11.5-14.5)
--- NOTE | 2019-01-16 06:07 | NUR ---
CLARIFIED WITH DR. HEATON ON PT'S MAGNESIUM RIDER GTT, PER DR. HEATON 4 GRAMS TOTAL. ADMINISTERING PER EMAR.
--- NOTE | 2019-01-16 07:00 | NUR ---
RECIEVED PT FROM ICU NURSE CLIFFORD HEBERT. PT A/O X4, TREMORS NOTED TO BUE. GENERALIZED WEAKNESS NOTED. PT BROUGHT UP VIA WC. NO SOB OR DISTRESS NOTED. SAFETY AND SEIZURE PRECAUTIONS IN PLACE, CALL LIGHT WITHIN REACH, ENDORSED CARE TO NIGHT NURSE.
--- NOTE | 2019-01-16 07:05 | NUR ---
GAVE REPORT TO ANUP HORTON. UPDATES PROVIDED, QUESTIONS ANSWERED. ENDORSED CARE.
[2019-01-16 08:12] VITALS: BP 115/69
--- NOTE | 2019-01-16 08:14 | NUR ---
DR BOWMAN AT BEDSIDE ASSESSING PATIENT AND DISCUSSING PLAN OF CARE. DISCUSSED DRINKING CESSATION.
[2019-01-16 09:04] LABS: BASOPHIL % 0.6 % (0-2)
[2019-01-16 09:08] LABS: RED CELL DISTRIBUTION WIDTH 16.4 % (11.5-14.5)
[2019-01-16 12:05] LABS: PLATELET COUNT 46 x10^3mcL (130-400)
--- NOTE | 2019-01-16 12:44 | NUR ---
REPORT GIVEN TO RN IN GI. ALL QUESTIONS AND CONCERNS ADDRESSED. WAITING FOR PATIENT TO BE TAKEN FOR PROCEDURE.
[2019-01-16 13:22] LABS: BASOPHIL % 0.7 % (0-2)
[2019-01-16 13:37] LABS: RED CELL DISTRIBUTION WIDTH 16.4 % (11.5-14.5)
[2019-01-16 13:43] LABS: PLATELET COUNT 44 x10^3mcL (130-400)
--- NOTE | 2019-01-16 14:46 | NUR ---
DR SANDY AT BEDSIDE FOR EGD. UPDATED ON PATIENT STATUS. PATIENT HAD BM X2 SMALL DARK IN COLOR. NOTIFIED OF TRANSFUSION OF PRBC X2 (1 IN ER AND ONE IN ICU), AND ONE UNIT PLATELETS. INFORMED THAT PATIENT IS ASKING FOR FOOD AND DRINK. WILL AWAIT RESULTS AND CONTINUE PLAN OF CARE APPROPRIATE.
[2019-01-16 17:09] LABS: BASOPHIL % 0.5 % (0-2)
[2019-01-16 17:18] LABS: RED CELL DISTRIBUTION WIDTH 16.8 % (11.5-14.5)
[2019-01-16 17:19] LABS: PLATELET COUNT 46 x10^3mcL (130-400)
--- NOTE | 2019-01-16 18:19 | NUR ---
REPORT GIVEN TO KATERIN HORTON. ALL QUESTIONS AND CONCERNS ADDRESSED. PATIENT TO TRANSFER TO ROOM 220-B.
--- NOTE | 2019-01-16 19:40 | NUR ---
RECEIVED REPORT FROM DAY SHIFT RN. PT RESTING IN BED. AA&O X4. NO SOB NOTED ON ROOM AIR. BREATHING EVEN AND UNLABORED. NO C/O PAIN AT THIS TIME. NO DISTRESS NOTED. IV TO RFA AND LAC, SALINE LOCKED. SAFETY MEASURES IN PLACE. BED IN LOWEST POSITION. SIDE RAIL PADS IN PLACE FOR SEIZURE PRECAUTION. DEMONSTRATED HOW TO USE THE CALL LIGHT. CALL LIGHT WITHIN REACH.
[2019-01-16 20:46] VITALS: BP 134/85
[2019-01-16 21:20] LABS: BASOPHIL % 0.9 % (0-2); RED CELL DISTRIBUTION WIDTH 16.6 % (11.5-14.5)
[2019-01-16 21:22] LABS: PLATELET COUNT 48 x10^3mcL (130-400)
[2019-01-17 05:30] VITALS: BP 124/72
[2019-01-17 06:56] VITALS: BP 94/55
--- NOTE | 2019-01-17 07:00 | NUR ---
PT RESTED AT INTERVALS DURING SHIFT. PT CONFUSED. TRIES TO REMOVE HEART MONITOR AND GETS UP. PT HAS HAND TREMORS AND UNSTEADY GAIT. ATIVAN IV GIVEN X2 FOR AGITATION/RESTLESSNESS. SAFETY MEASURES MAINTAINED. SIDE RAIL PADS IN PLACE. INSTRUCTED PT TO USE THE CALL LIGHT FOR ASSISTANCE. CALL LIGHT WITHIN REACH. WILL ENDORSE CARE TO DAY SHIFT RN.
--- NOTE | 2019-01-17 07:35 | NUR ---
RECEIVED PT FROM RN DERMATOLOGY NURSE. PT IS AGITATED, TRYING TO GET OUT OF BED. PT IS VERY WEAK AND FALL RISK. VERY CONFUSED. RESEARCH PROJECT COORDINATOR AT BEDSIDE. RN AND RESEARCH PROJECT COORDINATOR ASSISTED PT BACK IN THE BED BUT PT IS STILL TRYING TO GET OUT OF BED AND AGITATED. TELE IS OFF AND PT IS RESISTING TO PUT TELE BACK, KEEP TAKING IT OFF. ATIVAN IS NOT TIME NOW. INFORMED , RESIDENT DOCTOR ABOUT EVERYTHING AND REQUESTED FOR ATIVAN. SAFTEY PRECAUTIONS ARE IN PLACE. BEDALARM ON. WILL MONITOR.
--- NOTE | 2019-01-17 08:37 | NUR ---
PT IS AGITATED, GETTING OUT OF BED. ATIVAN 1MG IV GIVEN ORDERED. WILL MONITOR. GLOBAL CTO AT BED SIDE FOR SAFTEY. V/S STABLE. WILL MONITOR.
--- NOTE | 2019-01-17 09:00 | NUR ---
PT IS SLEEPING THIS TIME. STABLE.
[2019-01-17 10:00] VITALS: BP 147/91
--- NOTE | 2019-01-17 11:30 | NUR ---
PT RESTLESS KEEPS ATTEMPTING TO GET OOB AND IS SHACKY AND UNSTEADY. PT ALSO OBSERVED PULLING ON IV LINES. WITH WITH ACTIVE WITHDRAWAL SYMPTOMS AT THIS TIME. SPOKE WITH DR. BEACH OBTAINED INITIAL ORDER FOR BILAT SOFT WRIST RESTRAINTS. PLACED ON PT AT THIS TIME. ATTENDING NURSE AWARE, WILL TREAT FOR RESTLESSNESS AND WITHDRAWAL SYMPTOMS.
--- NOTE | 2019-01-17 11:37 | NUR ---
PT IS VERY AGITATED, COMBATIVE, GETTING OUT OF BED. ATIVAN 1MG IV GIVEN AND INITIATED RESTRAINS TO BUE. STABLE. V/S STABLE. COMPRESSOR OPERATOR PORTABLE AT BEDSIDE FOR SAFTEY. WILL MONITOR.
--- NOTE | 2019-01-17 12:00 | NUR ---
PT IS SLEEPING THIS TIME. CALM, STABLE.
--- NOTE | 2019-01-17 13:00 | NUR ---
PT IS SLEEPING BUT STILL MOVING AROUND IN THE BED. RESTRAINTS STILL ON. SIGNED RESTRAINT FORM. STABLE.
[2019-01-17 13:54] VITALS: BP 121/80
--- NOTE | 2019-01-17 15:28 | NUR ---
PT WOKE UP AGITATED. TRYING TO TAKE RESTRAINTS OFF, USING FOUL LANGUAGES. ATIVAN 1MG IV GIVEN ORDERED. V/S STABLE. WILL MONITOR. BEVELER AT BEDSIDE FOR SAFTEY.
[2019-01-17 18:02] VITALS: BP 123/82
--- NOTE | 2019-01-17 19:06 | NUR ---
PT RESTING IN BED. STILL MOVING AROUND, USING FOUL LANGUAGES AND CONFUSED. STILL HAS ANDREY SOFT WRIST RESTRAINTS ON. STABLE. GAVE REPORT TO BODY STRAIGHTENER NURSE.
--- NOTE | 2019-01-17 19:20 | NUR ---
RECEIVED PT IN BED AWAKE BUT DISORIENTED TO PERSON, PLACE AND TIME. PT TRYING TO GET OOB W/ HIS LEGS DANGLING BY THE BED. POSITIONED PT PROPERLY. NO SOB NOTED ON ROOM AIR. BOWEL SOUNDS ACTIVE. PT HAS NO C/O PAIN. NO ACTIVE BLEEDING NOTED. W/ HL TO LTAC AND RTFA. BILAT SOFT WRIST RESTARINTS IN PLACE. SITTER AT BEDSIDE. WILL CONTINUE TO MONITOR.
[2019-01-17 21:00] VITALS: BP 151/99
--- NOTE | 2019-01-17 21:33 | NUR ---
PT CONTINUES TO TRY TO GET OOB. REORIENTED BUT REMAINS CONFUSED AND UNABLE TO UNDERSTAND. PT MEDICATED W/ ATIVAN 1 MG IV TO HELP HIM CALM DOWN.
--- NOTE | 2019-01-17 22:30 | NUR ---
PT APPEARS MORE CALM AFTER ATIVAN IV ALTHOUGH STILL CONFUSED .
--- NOTE | 2019-01-18 03:00 | NUR ---
PT SLEEPING ON AND OFF AND STILL CONFUSED. PT REORIENTED.
--- NOTE | 2019-01-18 05:10 | NUR ---
PT SLEPT ON AND OFF AND REMAINS CONFUSED. PT STILL TRIES TO GET OOB AT TIMES. REORIENTED HIM NEEDED. NO EPISODE OF SEIZURE. HE HAD NO C/O PAIN. BILAT SOFT WRISTS RESTRAINTS IN PLACE AND GOOD CIRCULATION MAINTAINED.
[2019-01-18 05:46] VITALS: BP 129/96
[2019-01-18 07:02] LABS: BASOPHIL % 0.7 % (0-2)
[2019-01-18 07:13] LABS: CARBON DIOXIDE 27.7 mmol/L (21-32); CHLORIDE SERUM 102 mmol/L (98-107); POTASSIUM SERUM 3.2 mmol/L (3.5-5.1); SODIUM SERUM 138 mmol/L (136-145)
[2019-01-18 07:14] LABS: CALCIUM 7.8 mg/dL (8.5-10.1); CREATININE SERUM 0.7 mg/dL (0.7-1.3); GFR1 > 60 mL/min; GLUCOSE SERUM 74 mg/dL (74-106)
[2019-01-18 07:14] LABS: PLATELET COUNT 54 x10^3mcL (130-400); RED CELL DISTRIBUTION WIDTH 15.8 % (11.5-14.5)
--- NOTE | 2019-01-18 08:00 | NUR ---
PT RESTING IN BED COMFORTABLY. DENIES ANY PAIN. STABLE. PT STILL CONFUSED, HAS ANDREY SOFT WRIST RESTRAINTS. NEW CAR GET READY MECHANIC AT BEDSIDE FOR SAFTEY. V/S STABLE. SAFTEY PRECAUTIONS ARE IN PLACE. WILL MONITOR.
[2019-01-18 08:15] VITALS: BP 108/71
--- NOTE | 2019-01-18 09:00 | NUR ---
INFORMED ABOUT K=3.2 AND MG=1. PT IS STABLE.
--- NOTE | 2019-01-18 12:55 | NUR ---
PT ATE LUNCH. STABLE. PT STILL CONFUSED AND MOVING AROUND IN THE BED BUT BETTER THAN BEFORE. PRECISION CROP MANAGER AT BEDSIDE FOR ROCK.
[2019-01-18 13:01] VITALS: BP 96/55
--- NOTE | 2019-01-18 13:44 | NUR ---
1. Recommend continue with Reg diet. Per sitter, pt's PO intake has been improving. Will continue to monitor.
--- NOTE | 2019-01-18 13:44 | NUR ---
Initial Nutrition Assessment- Damaso Wilson 219T-A Dx: Upper GI bleed PMHx: Color blindness and chronic alcoholism PSHx: None Labs: 01/18: K:3.2L, Ca:7.8L, M.4L, H/H:10.3/30L, WBC:4.4L (01/15) T bili:2.06H, AST:85H Meds: Ativan, Ferrous sulfate, folic acid, Librium, Protonix, Reglan, Theragran, B1, Zofran Diet: Regular PO Intakes: 01/17: B:25% L:50% D:25%, 01/18:B:100% PO intake x 3 meals:50% Ht: 69in, 5'9" Wt: 61.3kg, 135# BMI: 20kg/m2 (normal) IBW: 160#, 73kg %IBW:84% UBW: unable to obtain Age: 43 y/o male Food Allergies: NKFA Skin: intact Deepak: 19 Edema: None GI: active bowel sounds Last BM:01/15 Nursing Trigger: Poor PO intake>3days Per H&P, pt was BIBA to the ER for vomiting blood. In the ER pt had about six episodes of bloody vomit. Pt also with c/o epigastric discomfort and mild SOB. Per progress note 01/17, EGD performed yesterday, showed no source of bleeding. Continue supportive care. Hgb:8.3 and Hct:25. Per RN note 01/18, pt sleeps on and off and remains confused. Pt still tries to get OOB at times. BL soft wrist restraints in place. During visit, pt was seen asleep with sitter at bedside. Per sitter, pt's appetite has improved since last night. Pt ate 100% of his breakfast today. PO intake was low due to AMS per sitter. Problem with: N/V/D/C: No Problems with: Chewing/Swallowing: No Current appetite: Recent wt changes: %wt change: unable to assess Vitamin/Supplement: Mg oxide, Folic acid and Thiamine per H&P Special Diet at Home: Regular per admission assessment Physical activity: unable to assess Education: unable to provide due to pt being confused Estimated Nutritional Needs Based on actual body weight of 61 kg. Energy: 1525-1830kcal/d (25-30 kcal/kg for maintenace) Protein: 61 gm/d (1 gm/kg for maintenance) Fluid: 1525-1830mL/d (1 mL/kcal) or per MD. Nutrition Diagnosis 1. Inadequate protein/energy intake related to lethargy and altered mental state as evidenced by PO intake 50% x 4 meals. Intervention 1. Recommend continue with Reg diet. Per sitter, pt's PO intake has been improving. Will continue to monitor. Monitor/Evaluate Goal: PO intake to meet 75% estimated needs Monitor: PO intake, labs, GI function, Skin integrity, Weights. F/U in 3-5 days as moderate risk 01/21-
[2019-01-18 17:35] VITALS: BP 103/55
--- NOTE | 2019-01-18 17:45 | NUR ---
PT REMAINS STABLE, DENIES ANY PAIN. STILL ON BILA SOFT WRIST RESTRAINTS FOR PT STILL CONFUSED AND MOVING AROUND, SHOWS SOME RESTLESS. ATE DINNER.
--- NOTE | 2019-01-18 19:20 | NUR ---
PT REMAINS STABLE. ON ANDREY SOFT WRIST RESTRAINTS, PT STILL CONFUSED. PEER SUPPORT SPECIALIST AT BEDSIDE FOR SAFTEY. GAVE REPORT TO TAKE UP SUPERVISOR NURSE.
--- NOTE | 2019-01-18 19:30 | NUR ---
RECEIVED PT IN BED AWAKE . HE IS MORE ORIENTED NOW ( PERSON AND PLACE) ALTHOUGH STILL W/ PERIODS OF CONFUSION PER AM NURSE. LUNGS CTA. NO SOB. BOWEL SOUNDS ACTIVE. NO ACTIVE BLEEDING AT THIS TIME. PT ON BILAT SOFT WRIST RESTRAINTS PT WANTS TO GET OOB. W/ HL TO LTAC AND RTFA. CALL LIGHT W/IN REACH.
[2019-01-18 19:55] VITALS: BP 98/54
--- NOTE | 2019-01-18 23:00 | NUR ---
PT STILL AWAKE AND KEEPS SAYING TO REMOVE RESTRAINTS SO HE CAN GET OOB. PT STILL A LITTLE SHAKY AND WEAK. RESTRAINTS KEPT IN PLACE . GOOD CIRCULATION MAINTAINED.
--- NOTE | 2019-01-19 02:00 | NUR ---
PT SLEEPING ON AND OFF TRYING TO GET OOB AT TIMES. REORIENTED PT .
--- NOTE | 2019-01-19 05:22 | NUR ---
PT SLEPT ON AND OFF. PT IS ORIENTED TO HIS NAME AND PLACE BUT STILL MORE CONFUSED MOST OF THE NIGHT AND AT TIMES SAYING SOMETHING THAT DOES NOT MAKE SENSE. HE HAD NO C/O PAIN. NO EPISODE OF SEIZURE. HE HAD NO BM AND WAS INCONTINENT OF URINE X3 THIS SHIFT. BILAT WRIST RESTRAINTS IN PLACE AND GOOD CIRCULATION MAINTAINED.
[2019-01-19 06:10] VITALS: BP 115/73
--- NOTE | 2019-01-19 06:13 | NUR ---
PT CONFUSED AND KEEPS ON TRYING TO GET OOB AND KICKING. ATIVAN 1 MG IV GIVEN TO HELP PT CALM DOWN.
--- NOTE | 2019-01-19 06:45 | NUR ---
IV SITE TO RTFA W/ A LITTLE REDNESS. IV REMOVED.
--- NOTE | 2019-01-19 07:00 | NUR ---
PT NOW APPEARS CALM AND QUIET AFTER ATIVAN IV WAS GIVEN.
--- NOTE | 2019-01-19 07:40 | NUR ---
PT IS AWAKE, ORIENTED X2. STILL CONFUSED AND TRYING TO GET OUT OF BED SOME TIMES AND USING FOUL LANGUAGES. DENIES ANY PAIN. STABLE. SAFTEY PRECAUTIONS ARE IN PLACE. WILL MONITOR.
[2019-01-19 08:01] LABS: PLATELET COUNT 53 x10^3mcL (130-400); RED CELL DISTRIBUTION WIDTH 16.8 % (11.5-14.5)
[2019-01-19 08:58] VITALS: BP 104/61
--- NOTE | 2019-01-19 10:00 | NUR ---
INFORMED ABOUT K=3.3, MG=1.5 AND WBC=3.1. NO NEW ORDER RECEIVED THIS TIME. HE SAID HE WILL CHECK THE LAB AND PUT ORDERS.
--- NOTE | 2019-01-19 10:30 | NUR ---
PT IS AGITATED, GETTING OUT OF BED. ATTEMPTING TO PULL LINES. ANDREY SOFT WRIST RESTRAINTS ON. USING FOUL LANGAUGES. ATIVAN 1MG IV GIVEN PER ORDER. CRITICAL CARE SPECIALIST AT BEDSIDE FOR SAFTEY.
[2019-01-19 11:00] LABS: CALCIUM 7.6 mg/dL (8.5-10.1); CARBON DIOXIDE 27.4 mmol/L (21-32); CHLORIDE SERUM 104 mmol/L (98-107); CREATININE SERUM 0.7 mg/dL (0.7-1.3); GFR1 > 60 mL/min; GLUCOSE SERUM 83 mg/dL (74-106); MAGNESIUM 1.5 mg/dL (1.8-2.4); POTASSIUM SERUM 3.3 mmol/L (3.5-5.1); SODIUM SERUM 140 mmol/L (136-145)
--- NOTE | 2019-01-19 11:00 | NUR ---
PT IS SLEEPING THIS TIME, GETTING CALM BUT STILL CONFUSED AND MOVING AROUND IN THE BED.
[2019-01-19 11:40] LABS: BAND NEUTROPHIL 0 % (0-10); BASOPHIL 0 % (0-2); MONOCYTE 19 % (0-7); SEGMENTED NEUTROPHILS 61 % (37-75)
[2019-01-19 11:41] LABS: PLATELET MORPHOLOGY PLATELETS DECREASED; rbc morphology (normal/abnorm) ABNORMAL (NORMAL)
--- NOTE | 2019-01-19 13:00 | NUR ---
PT REFUSING TO EAT LUNCH. ENCOURAGED PT TO EAT BUT STILL REFUSING, HAD SOME APPLE JUICE. V/S STABLE.
[2019-01-19 15:24] VITALS: BP 123/69
--- NOTE | 2019-01-19 15:30 | NUR ---
PT IS AGITATED, GETTING OUT OF BED. ATTEMPTING TO PULL LINES. ANDREY SOFT WRIST RESTRAINTS ON. USING FOUL LANGAUGES. ATIVAN 1MG IV GIVEN PER ORDER. DERRICK BOAT LEVER OPERATOR AT BEDSIDE FOR SAFTEY. PT'S BROTHER AT BEDSIDE.
--- NOTE | 2019-01-19 16:00 | NUR ---
PT IS SLEEPING THIS TIME, STABLE.
--- NOTE | 2019-01-19 17:40 | NUR ---
PT IS STABLE, EATING DINNER. STILL CONFUSED, ON ANDREY SOFT WRIST RESTRINTS. V/S STABLE.
[2019-01-19 17:55] VITALS: BP 138/80
--- NOTE | 2019-01-19 19:07 | NUR ---
PT RESTING IN BED COMFORTABLY. STABLE. SLEEPING THIS TIME BUT STILL CONFUSED AND MOVING AROUND, ON ANDREY SOFT WRIST RESTRAINTS AND MANAGER PROCESS IMPROVEMENT AT BEDSIDE FOR SAFTEY. GAVE REPORT TO LEARNING FACILITATOR NURSE.
[2019-01-19 19:20] VITALS: BP 118/64
--- NOTE | 2019-01-19 19:20 | NUR ---
RECEIVED PT AWAKE ALERT TO NAME AND BIRTHDATE AND KNOWS HE IS IN THE HOSPITAL.ON SEIZURE PRECAUTIONS FOR ALCOHOL WITHDRAWAL.HAND TREMORS NOTED.PADDED RAILS IN PLACED.NURSE AT BEDSIDE TO ASSIST WITH ADLS.ON BILATERAL SOFT WRIST RESTRAINTS TO PREVENT PULLING OUT LINES.APPEARS CALM AT THIS TIME.WILL CONTINUE TO MONITOR.
--- NOTE | 2019-01-20 05:06 | NUR ---
PT SLEPT WELL ALL NIGHT.NO SEIZURE ACTIVITY NOTED.PADDED RAILS IN PLACE FOR SEIZURE PRECAUTION.BILATERAL SOFT WRIST RESTRAINTS IN PLACED AND CHECKED CIRCULATION PER RPROTOCOL.NURSE AT BEDSIDE TO ASSIST WITH ADLS.NO AGITATION NOTED.ON ALCOHOL WITHDRAWAL PROTOCOL.LIBRIUM 25 MG PO QGH RTC.WILL CONTINUE TO MONITOR.
[2019-01-20 05:35] VITALS: BP 108/69
[2019-01-20 06:44] LABS: CALCIUM 7.4 mg/dL (8.5-10.1); CARBON DIOXIDE 30.1 mmol/L (21-32); CHLORIDE SERUM 105 mmol/L (98-107); CREATININE SERUM 0.7 mg/dL (0.7-1.3); GFR1 > 60 mL/min; GLUCOSE SERUM 81 mg/dL (74-106); MAGNESIUM 1.3 mg/dL (1.8-2.4); POTASSIUM SERUM 3.2 mmol/L (3.5-5.1); SODIUM SERUM 141 mmol/L (136-145)
[2019-01-20 07:08] LABS: PLATELET COUNT 50 x10^3mcL (130-400); RED CELL DISTRIBUTION WIDTH 16.5 % (11.5-14.5)
[2019-01-20 08:08] VITALS: BP 112/61
--- NOTE | 2019-01-20 08:08 | NUR ---
RECEIVED PATIENT FROM [facility]. PATIENT SEEN SEATED UP IN BED, EATING AND TOLERATING BREAKFAST TRAY. SPOKE WITH PATIENT ABOUT PLAN OF CARE FOR TODAY INCLUDING PO MEDICATIONS AND PATIENT AGREES. WILL AWAIT FOR SOUND ENGINEERING TECHNICIAN [employer] TO COME IN AND SPEAK WITH PATIENT ABOUT PLAN. SITTER AT BEDSIDE, PATIENT ON RESTRAINTS TODAY, WILL CONTINUE TO MONITOR. CALL LIGHT IN REACH.
[2019-01-20 09:51] LABS: BAND NEUTROPHIL 0 % (0-10); BASOPHIL 1 % (0-2); MONOCYTE 20 % (0-7); SEGMENTED NEUTROPHILS 50 % (37-75)
--- NOTE | 2019-01-20 09:51 | NUR ---
TUNNEL ELASTIC OPERATOR CHAINSTITCH ISIS IN TO SPEAK WITH PATIENT BRIEFLY, WILL ORDER PT FOR PATIENT. PATIENT AGREES AND UNDERSTANDS. NO PLANS FOR DISCHARGE AT THIS TIME. CALL LIGHT IN REACH, SITTER AT BEDSIDE.
[2019-01-20 09:52] LABS: PLATELET MORPHOLOGY PLATELETS DECREASED; rbc morphology (normal/abnorm) ABNORMAL (NORMAL); target cell (codocyte) 1+
[2019-01-20 11:03] LABS: PATH REVIEW for HEMA NO
[2019-01-20 13:07] VITALS: BP 96/53
--- NOTE | 2019-01-20 17:03 | NUR ---
PATIENT SEATED UP IN BED, NO SEIZURE ACTIVITY OBSERVED TODAY. COMPLIANT WITH ALL PO MEDICATIONS TODAY AND FOLLOWS COMMANDS. WILL CONTINUE TO MONITOR, NO RESTRAINTS USED THIS SHIFT. CALL LIGHT IN REACH.
--- NOTE | 2019-01-20 18:29 | NUR ---
PATIENT SEATED UP IN BED AT THIS TIME. NO COMPLAINTS OF PAIN, EATING AND TOLERATING DINNER TRAY. SITTER AT BEDSIDE.
[2019-01-20 19:04] VITALS: BP 99/51
--- NOTE | 2019-01-20 19:20 | NUR ---
RECEIVED REPORT FROM DAY SHIFT NURSE, ANGÉLICA HORTON. PT IS AAOX3. SLURRED SPEECH. SEIZURE PRECAUTIONS IN PLACE - PADDINGS APPLIED X4 RAILS. KATE BARNETT. TELE #30 READING SR AT 88. DENIES CP. PULSES ARE PALPABLE. NO EDEMA NOTED. BREATHING IS EVEN AND UNLABORED ON RA. LUNG SOUNDS CTA. NO RESP. DISTRESS NOTED. ABD IS SOFT AND NONDISTENDED. VOIDS FREELY, DENIES PAIN UPON URINATION. GENERALIZED WEAKNESS. HAND TREMORS NOTED. SKIN INTACT. DENIES PAIN AT THIS TIME. IV TO LAC DRY AND INTACT. NO ERYTHEMA NOTED. SL. SITTER AT BEDSIDE. BED IN LOWEST POSITION. CALL LIGHT WITHIN REACH. WILL CONTINUE TO MONITOR.
[2019-01-20 20:03] VITALS: BP 91/55
--- NOTE | 2019-01-20 21:30 | NUR ---
ROUTINE MEDICATIONS WERE GIVEN AND TOLERATED WELL. NO ACUTE DISTRESS NOTED. DENIES PAIN AT THIS TIME. BREATHING IS EVEN AND UNLABORED ON RA. NO SIGNS OF RESP. DISTRESS. SITTER AT BEDSIDE. PT REQUESTING FOR ENSURE, INFORMED PT KITCHEN IS CLOSED. OFFERED PT VANILLA PUDDING. BED IN LOWEST POSITION. CALL LIGHT WITHIN REACH. WILL CONTINUE TO MONITOR.
--- NOTE | 2019-01-20 23:50 | NUR ---
PT ACCIDENTALLY REMOVED IV. NEW IV WAS INSERTED ON RFA (22G). IV DRY INTACT AND PATENT. NO ERYTHEMA NOTED. BREATHING IS EVEN AND UNLABORED ON RA. NO SIGNS OF RESP. DISTRESS. DENIES PAIN OR SOB AT THIS TIME. BED IN LOWEST POSITION. CALL LIGHT WITHIN REACH. WILL CONTINUE TO MONITOR.
--- NOTE | 2019-01-21 01:25 | NUR ---
PT IS RESTING IN BED COMFORTABLY WITH EYES CLOSED, BUT EASILY AROUSABLE WHEN SPOKEN TO. BREATHING IS EVEN AND UNLABORED ON RA. NO SIGNS OF RESP. DISTRESS. BED IN LOWEST POSITION. SITTER AT BEDSIDE. CALL LIGHT WITHIN REACH. WILL CONTINUE TO MONITOR.
--- NOTE | 2019-01-21 03:28 | NUR ---
PT IS IN BED, RESTING COMFORTABLY, WATCHING TV. DENIES PAIN AT THIS TIME. BREATHING IS EVEN AND UNLABORED ON RA. NO SIGNS OF RESP. DISTRESS. SITTER AT BEDSIDE. BED IN LOWEST POSITION. CALL LIGHT WITHIN REACH. WILL CONTINUE TO MONITOR.
--- NOTE | 2019-01-21 04:39 | NUR ---
PT SLEPT IN SHORT INTERVALS THROUGHOUT THE NIGHT AND COMPLIED WITH NURSING CARE WITH NO ACUTE EVENTS OCCURRING DURING THE SHIFT. COMFORT AND SAFETY MEASURES MAINTAINED. SEIZURE PRECAUTIONS IN PLACE - NO SEIZURE ACTIVITY DURING THE SHIFT. ALL NEEDS ASSESSED AND ATTENDED TO. SITTER AT BEDSIDE. BED IN LOWEST POSITION. CALL LIGHT WITHIN REACH. WILL CONTINUE TO MONITOR AND ENDORSE CARE TO DAY SHIFT NURSE.
[2019-01-21 05:59] VITALS: BP 98/60
[2019-01-21 06:45] LABS: CALCIUM 7.2 mg/dL (8.5-10.1); CARBON DIOXIDE 27.6 mmol/L (21-32); CHLORIDE SERUM 106 mmol/L (98-107); CREATININE SERUM 0.7 mg/dL (0.7-1.3); GFR1 > 60 mL/min; GLUCOSE SERUM 92 mg/dL (74-106); SODIUM SERUM 139 mmol/L (136-145)
[2019-01-21 07:32] LABS: PLATELET COUNT 54 x10^3mcL (130-400); RED CELL DISTRIBUTION WIDTH 16.4 % (11.5-14.5)
--- NOTE | 2019-01-21 07:40 | NUR ---
RECEIVED PATIENT RESTING IN BED, NO ACUTE DISTRESS NOTED. PATIENT A/OX4, DENIES HEADACHE. PATIENT REPORTS OCCASIONAL DIZZINESS WHEN AMBULATING. DENIES SOB, ON ROOM AIR. PATIENT DENIES NAUSEA/VOMITTING. GENERALIZED WEAKNESS NOTED. IV TO RFA CDI&PATENT. CALL LIGHT WITHIN REACH, BED IN LOW POSITION. SITTER AT BEDSIDE FOR SAFETY PRECAUTION.
[2019-01-21 08:48] VITALS: BP 98/60
--- NOTE | 2019-01-21 12:00 | NUR ---
PT AT BEDSIDE.
[2019-01-21 12:21] VITALS: BP 93/54
--- NOTE | 2019-01-21 13:02 | NUR ---
PO MEDICATIONS GIVEN AT THIS TIME, PATIENT TOLERATED WELL. PATIENT SITTING UP AT BEDSIDE EATING LUNCH. NO ACUTE DISTRESS NOTED. PATIENT DENIES PAIN. ALL NEEDS MET AT THIS TIME. SITTER AT BEDSIDE FOR SAFETY PRECAUTIONS, CALL LIGHT WITHIN REACH.
[2019-01-21 13:09] LABS: BAND NEUTROPHIL 0 % (0-10); BASOPHIL 0 % (0-2); MONOCYTE 20 % (0-7); PLATELET MORPHOLOGY PLATELETS DECREASED; SEGMENTED NEUTROPHILS 48 % (37-75); rbc morphology (normal/abnorm) ABNORMAL (NORMAL)
[2019-01-21 17:07] VITALS: BP 99/63
--- NOTE | 2019-01-21 18:30 | NUR ---
PATIENT RESTING IN BED, NO ACUTE DISTRESS NOTED. PATIENT DENIES PAIN. NO ACUTE CHANGES NOTED THROUGH OUT SHIFT. PATIENT IS STABLE. ALL NEEDS MET AT THIS TIME. IV TO RFA SALINE LOCK, NO S/S OF INFILTRATION. CALL LIGHT WITHIN REACH, BED IN LOW POSITION. WILL ENDORSE REPORT TO NIGHT RN.
--- NOTE | 2019-01-21 19:32 | NUR ---
Pt. received from day shift currently resting in bed, asleep, with sitter at bedside. Pt. is easily arousable using verbal stimuli and slight touching of shoulder at this time. Pt. noted to be a/o x4, able to make some needs known, able to follow some simple commands, and is noted to have garbled speech and confused at times w/ seizure precautions in place. Pt. is tele 30, SR/ST, no c/o of chest pain at this time. Pt. also has no c/o of SOB at this time or s/o distress. As per day shift, Mg was replaced, but no f/u labs were ordered, will contact MD and endorse to MD to put in order for Mg labs in the AM. As per day shift, pt. used to smoke 1/2 pack of cigarettes / day, will endorse to MD also and ask for a nicotine patch to help with potential withdrawl effects since pt. asked to smoke to day shift RN. Will continue to monitor pt.
--- NOTE | 2019-01-22 00:40 | NUR ---
Pt. currently asleep for most of the shift, no c/o pain, s/o SOB or distress at this time. Pt. arousable with verbal stimuli, sitter at bedside at this time. Will continue to monitor pt. at this time.
[2019-01-22 05:37] VITALS: BP 95/46
--- NOTE | 2019-01-22 05:53 | NUR ---
Pt. currently asleep for most of the night, but arousable with verbal stimuli. Pt. has had a sitter all night, and sitter has nothing to report at this time. Pt. has no c/o of pain, no c/o of SOB or chest pain at this time. will continue to monitor pt. at this time until the end of shift and endorse to next shift RN.
[2019-01-22 07:05] LABS: BASOPHIL % 1.1 % (0-2)
[2019-01-22 07:15] LABS: PLATELET COUNT 53 x10^3mcL (130-400); RED CELL DISTRIBUTION WIDTH 15.8 % (11.5-14.5)
[2019-01-22 07:30] LABS: CHLORIDE SERUM 109 mmol/L (98-107); CREATININE SERUM 0.8 mg/dL (0.7-1.3); GFR1 > 60 mL/min; GLUCOSE SERUM 122 mg/dL (74-106); POTASSIUM SERUM 3.9 mmol/L (3.5-5.1); SODIUM SERUM 140 mmol/L (136-145)
--- NOTE | 2019-01-22 07:45 | NUR ---
RECEIVED PATIENT SITTING UP AT BEDSIDE, PATIENT A/OX4. GARBLED SPPECH NOTED. PATIENT DENIES BARNETT, SEIZURE PRECAUTIONS IN PLACE. TELE MONITOR IN PLACE, DENIES CHEST PAIN, DIZZINESS. PATIENT DENIES SOB, ON ROOM AIR. DENIES NAUSEA/VOMITTING. EDUCATED PATIENT ON S/S OF GI BLEEDING. PATIENT AMBULATORY WITH ASSISTANCE, SLOW & UNSTEEADY GAIT NOTED. IV TO RFA SALINE LOCK, CDI&PATENT. SITTER AT BEDSIDE FOR SAFETY PRECAUTION. CALL LIGHT WITHIN REACH, BED IN LOW POSITION, WILL CONTINUE TO MONITOR.
[2019-01-22 08:34] VITALS: BP 93/58
--- NOTE | 2019-01-22 10:11 | NUR ---
OTOLARYNGOLOGY TEACHER ISIS AWARE THERE WAS NO FOLLOW UP WITH [facility], MARQUEZ MARINELLI WILL ADD MAGNESIUM LAB FOR TOMORROW MORNING. NO FURTHER ORDERS AT THIS TIME.
--- NOTE | 2019-01-22 11:36 | NUR ---
1. Recommend continue with Reg diet.
--- NOTE | 2019-01-22 11:36 | NUR ---
Follow Up Nutrition Assessment- Damaso Wilson 219T-A Dx: Upper GI bleed Labs: 01/22: BH, Ca:7L, H/H:8.3/25L Meds: Ativan, Ferrous sulfate, folic acid, Librium, Neutra-phos, Prilosec, Reglan, Theragran, B1, Zofran Diet: Regular PO Intakes: (01/21) B:100% L:100% D:80% (01/22) B:100% Skin: intact Edema: None Last BM:01/21 Per progress note 01/22, pt is doing much better today sitting up in bed, however, still some weakness. Plan is for home health with PT to be arranged and discharge planning in the am. During visit, pt was seen laying in bed. Pt with a good appetite with no c/o GI issues. Estimated Nutritional Needs Based on actual body weight of 61 kg. Energy: 1525-1830kcal/d (25-30 kcal/kg for maintenace) Protein: 61 gm/d (1 gm/kg for maintenance) Fluid: 1525-1830mL/d (1 mL/kcal) or per MD. Nutrition Diagnosis 1. Inadequate protein/energy intake related to lethargy and altered mental state as evidenced by PO intake 50% x 4 meals (resolved) Intervention 1. Recommend continue with Reg diet. Monitor/Evaluate Previous goal: PO intake to meet 75% estimated needs (met) Goal: PO intake to meet 75% estimated needs Monitor: PO intake, labs, GI function, Skin integrity, Weights. F/U in 7 days as low risk 01/29
--- NOTE | 2019-01-22 12:11 | NUR ---
MEDICATIONS GIVEN AT THIS TIME, PATIENT TOLERATED PO MEDS WELL. PATIENT DENIES PAIN AT THIS TIME. NO ACUTE DISTRESS NOTED, ALL NEEDS MET AT THIS TIME. SITTER AT BEDSIDE FOR SAFETY. WILL CONTINUE TO MONITOR.
[2019-01-22 13:32] VITALS: BP 100/62
--- NOTE | 2019-01-22 15:30 | NUR ---
RECEIVED REPORT FROM FITZ AND RESUMED CARE OF PATIENT. PATIENT SITTING UP IN BED ON HIS PHONE DENIES ANY PAIN AT THIS TIME. NO S/S OF RESPIRATORY DISTRESS NOTED.SITTER AT BEDSIDE. ALL QUESTIONS AND CONCERNS ADDRESSED AT THIS TIME. BED IN LOWEST POSITION CALL LIGHT WITHIN REACH. WILL CONTINUE TO MONITOR.
--- NOTE | 2019-01-22 15:30 | NUR ---
REPORT GIVEN TO CLIFFORD LANDIN.
--- NOTE | 2019-01-22 17:13 | NUR ---
PATIENT SITTING UP IN BED WATCHING TV DENIES ANY PAIN AT THIS TIME. ADMINISTERED SCHEDULED MEDS PER APR. PATIENT TOLERATED WELL NO ADVERSE REACTIONS NOTED. ALL NEEDS ADDRESSED AT THIS TIME. BED IN LOWEST POSITION CALL LIGHT WITHIN REACH. WILL CONTINUE TO MONITOR
[2019-01-22 17:45] VITALS: BP 110/71
--- NOTE | 2019-01-22 18:48 | NUR ---
PATIENT LYING IN BED DENIES AND PAIN AT THIS TIME. NO S/S OF RESPIRATORY DISTRESS NOTED. IV ON RFA PATENT AND INTACT NO REDNESS OR EDEMA NOTED. PATIENT CALM AND COOPERATIVE AT THIS TIME.TELE MONITOR ON AND INTACT. PATIENT DENIES CHEST PAIN AT THIS TIME. ALL QUESTION AND CONCERNS ADDRESSED AT THIS TIME. BED IN LOWEST POSITION. SITTER AT BEDSIDE FOR SAFETY. WILL ENDORSE CARE TO TRANSMISSION TESTER NURSE.
--- NOTE | 2019-01-22 20:06 | NUR ---
PT RECIEVED AAO REG RESP NO SOB V/S STABLE,PT HJAS A SITTER AT THE BED SIDE HL TO THE RFA SITE PATENT AND INTACT,BED IN THE LOW POSITION AND LOCKED,CALL LIGHT EASY EACHED AND WILL CONTINUE TO MONITOR.
[2019-01-22 20:47] VITALS: BP 105/68
--- NOTE | 2019-01-23 02:18 | NUR ---
PT RESTING AT THIS TIME,WILL CONTINUE TO MONITOR.
[2019-01-23 06:31] VITALS: BP 103/62
--- NOTE | 2019-01-23 06:49 | NUR ---
PT HAD A RESTING NIGHT NO CHANGE AT THIS TIME AND WILL CONTINUE TO MONITOR.
--- NOTE | 2019-01-23 07:03 | NUR ---
RECEIVED PT FROM [employer] DRIVER NURSE. PT IN BED SLEEPING, AROUSABLE, RESP E/U ON RA. NO SIGNS OF ACUTE DISTRESS NOTED. ON TELE 30 SHOWING NSR, HR: 91. SALIN LOCK TO RFA W/ NO ERYTHEMA OR EDEMA. BED IN LOWEST POSITION AND CALL LIGHT WITHIN REACH. SITTER AT BEDSIDE. WILL CONTINUE TO MONITOR.
[2019-01-23 11:34] VITALS: BP 101/66
[2019-01-23] MEDS ORDERED: FERROUS SULFAT325 M2 PO (11:57)
--- NOTE | 2019-01-23 12:58 | NUR ---
PT IN BEDSIDE CHAIR HAVING LUNCH, AOX4, RESP E/U ON RA. NO ACUTE DISTRESS NOTED AT THIS TIME. CALL LIGHT WITHIN REACH. SITTER AT BEDSIDE. WILL CONTINUE TO MONITOR.
[2019-01-23 13:11] VITALS: BP 101/66
--- NOTE | 2019-01-23 17:30 | NUR ---
PT SITTING AT BEDSIDE CHAIR HAVING DINNER, AXO4, RESP E/U ON RA. DENIES NAUSEA, SOB OR PAIN, NO ACUTE DISTRESS NOTED. SALINE LOCKED TO RAC W/ NO ERYTHEMA OR EDEMA. CALL LIGHT WITHIN REACH. WILL ENDORSE TO ONCOMING NURSE.
[2019-01-23 18:40] VITALS: BP 110/72
[2019-01-23 18:41] VITALS: BP 115/54
--- NOTE | 2019-01-23 19:35 | NUR ---
PT AWAKE LAYING IN BED, AAOX4. DENIES BARNETT/DIZZINESS. TELE #30 ST HR 100, PT DENIES CHEST PAIN/PRESSURE. BREATHING EVEN AND UNLABORED ON RA WITH NO SOB NOTED. UNABLE TO COMPELTE SKIN ASSESMENT AT THIS TIME, PT UNCOOPERATIVE. SEIZURE PRECAUTIONS IN PLACE. CALL BUTTON WITHIN REACH. SAFETY PRECAUTIONS IN PLACE. WILL CONTINUE TO MONITOR.
[2019-01-23 21:21] VITALS: BP 110/63
--- NOTE | 2019-01-24 03:15 | NUR ---
ROUNDS MADE. PT RESITNG BREATHING EVEN AND UNLBAORED NO SIGNS OF DISTRESS. CALL BUTTON WITHIN REACH. SAFETY PRECAUTIONS IN PLACE. WILL CONTINUE TO MONITOR.
--- NOTE | 2019-01-24 04:40 | NUR ---
PT SLEPT ON AND OFF THROUGHOUT THE NIGHT WITH NO SIGNS OF DISTRESS. IV PATENT, SL. PT AMBULATORY UNSTEADY GAIT. MEDICATED PER EMAR. PT UNCOOPERATIVE WITH CARE AT TIMES. NO SIGNS OF ACUTE DISTRESS. CALL BUTTON WITHIN REACH. SAFETY PRECAUTIONS IN PLACE. WILL CONTINUE TO MONITOR AND ENDORSE CARE TO DAY SHIFT RN.
[2019-01-24 05:57] VITALS: BP 107/56
--- NOTE | 2019-01-24 07:15 | NUR ---
RECEIVED PATIENT AWAKE/ALERT UP TO BATHROOM TO WASH UP, NO DISTRESS NOTED. DENIES PAIN. TELE #30 SR WITH HR 90 NOTED. PATIENT WALK BACK FROM BATHROOM SAT IN CHAIR GAIT SLOW AND STEADY NOTED. ASKING FOR WASH CLOTH AND WARM WIPE, SUPPLIES GIVEN. CONT TO MONITOR.
--- NOTE | 2019-01-24 07:25 | NUR ---
PT AWAKE DENIES ANY PAIN. NO SIGNS OF DISTRESS. ENDORSED CARE TO DAY SHIFT RN, ALL QUESTIONS ADDRESSED.
[2019-01-24 08:04] VITALS: BP 120/75
--- NOTE | 2019-01-24 09:06 | NUR ---
PATIENT BACK FROM [facility] WITH PT, PER PT PATIENT WALK W/ UNSTEADY AND UNBALANCED STEPS, NEED WALKER AND CONT WITH PT. PATIENT SAT IN CHAIR ALL PO MEDS ADMINISTERED SWALLOW W/O PROBLEMS. NICOTINE PATCH APPLIED TO RT SHOULDER. NEEDS MET. CONT TO MONITOR.
--- NOTE | 2019-01-24 11:35 | NUR ---
PATIENT SLEEPING AT THIS TIME, TELE SR HR 83 NOTED. CONT TO MONITOR.
[2019-01-24 12:30] VITALS: BP 99/52
--- NOTE | 2019-01-24 12:43 | NUR ---
PATIENT SAT IN CHAIR ON THE PHONE COMPLAIN ABOUT HOSPITAL AND NURSE FROM YESTERDAY "MAN-HANDLING HIM AND PLACE IN RESTRAINT, NOT LETTING HIM LEAVE" PATIENT CONTINUE TALKING TO HIMSELF AND CUSSES. BUT COOPERATE WITH MEDS. REGLAN AND PO MEDS ADMINISTERED. NO PROBLEM. NEEDS MET. CONT TO MONITOR.
--- NOTE | 2019-01-24 15:47 | NUR ---
PATIENT SLEEPING AT THIS TIME, NO DISTRESS NOTED, TELE SR HR 81 NOTED. CONT TO MONITOR.
--- NOTE | 2019-01-24 16:01 | NUR ---
PATIENT WALKING OUT TO NURSING STATION, ASKING ABOUT TMD TEACHER AND CN EXPLAINED TO PATIENT WHAT NEED TO HAPPEN BEFORE DISCHARGE, WAITING FOR FWW AND HOME HEALTH FOR PT. PER PATIENT ALREADY HAVE WALKER AT HOME; ASKING FATHER - [place] [address]. BRING WALKER IN THE HOSPITAL SO PATIENT CAN USE. WHEN PATIENT WALK BACK TO ROOM ALMOST FALL TO THE WALL. PATIENT STATE THAT I WALK LIKE THAT.
[2019-01-24 16:03] VITALS: BP 111/59
--- NOTE | 2019-01-24 16:04 | NUR ---
PT WENT IN THE NURSING STATION AND INQUIRING WHAT IS THE DELAY OF HIS DISCHARGE SINCE HE HAD PROGRESSIVELY IMPROVING, EXPLAINED TO THE PT THAT HE NEEDED A FRONT WHEEL WALKER ARRANGE FOR HOME USE PER ISIS(N.P.) BUT IT NEEDED TO BE APPROVE BY PT INSURANCE. PT CLAIMS THAT HE HAS HIS OWN FWW AT HOME. HIS FATHER AT THE BEDSIDE VISITING AND PT TOLD HIS FATHER TO GET HIS WALKER AND BRING IT IN THE HOSPITAL. SPOKE TO ISIS(N.P.) AND MADE HER AWARE OF ABOVE, ISISWILL BE UPDATED ONCE FATHER BRINGS THE WALKER HERE IN THE HOSPITAL. PLAN PER ISIS IS TO DISCHARGE PT HOME ONCE FATHER BRINGS PT OWN FWW. STEWART HORTON ASSIGNED TO THIS PT MADE AWARE OF ABOVE. WILL AWAIT FOR PT FATHER.
[2019-01-24 16:06] VITALS: BP 111/59
--- NOTE | 2019-01-24 16:22 | NUR ---
FATHER HAD ARRIVED WITH PT OWN FRONT WHEEL WALKER. CALLED AND SPOKE TO ISIS AND MADE HER AWARE OF ABOVE. ISIS ORDERED OKAY TO DISCHARGE PT HOME TODAY AND THAT HIS HOME HEALTH WILL BE ARRANGE ON SATURDAY. STEWART HORTON ASSIGNED TO THIS PT MADE AWARE OF ABOVE.
--- NOTE | 2019-01-24 16:37 | NUR ---
PATIENT SAT IN CHAIR, FATHER BROUGHT IN WALKER FOR PATIENT, DISCHARGE INSTRUCTION AND MEDICATIONS EXPLAINED. INSTRUCT TO RESEARCH & ANALYTICS MANAGER MEDICATION AT [facility] AND F/U APPT ON 02/03/19 SCHEDULED. PATIENT VERBALIZE UNDERSTAND. IV REMOVED W/ CATHETER INTACT, NO ERYTHEMA NOTED. GAUZES APPLIED TO SITE. TELE #30 REMOVED AND RETURN TO [facility]. INFORM PATIENT [facility] WILL CALL ON SATURDAY TO MAKE APPT. KNOCKER OUT WHEEL PATIENT OUT WITH ALL BELONGINGS.
== END 2019-01-24 16:44 | disposition home or self-care (01) | DRG 280 ==
LOC: ED 09:18 → DU 10:58 → IC 10:58 → DU 01-16 18:58
PROVIDERS: Emergency Medicine; Internal Medicine; Internal Medicine Gastroenterology; ADMIT General Practice
PROC: 30233R1 Transfusion of Nonautologous Platelets into Peripheral Vein, Percutaneous Approach (ICD-10-PCS; 2019-01-15)
PROC: 30233N1 Transfusion of Nonautologous Red Blood Cells into Peripheral Vein, Percutaneous Approach (ICD-10-PCS; 2019-01-15)
PROC: 0DJ08ZZ Inspection of Upper Intestinal Tract, Via Natural or Artificial Opening Endoscopic (ICD-10-PCS; principal; 2019-01-16 18:15)
DX: K70.30 Alcoholic cirrhosis of liver without ascites (principal); G92 Toxic encephalopathy; I85.11 Secondary esophageal varices with bleeding; E46 Unspecified protein-calorie malnutrition; K76.6 Portal hypertension; D69.59 Other secondary thrombocytopenia; D62 Acute posthemorrhagic anemia; E83.51 Hypocalcemia; E87.2 Acidosis; K31.89 Other diseases of stomach and duodenum; F10.129 Alcohol abuse with intoxication, unspecified; F17.210 Nicotine dependence, cigarettes, uncomplicated; J45.909 Unspecified asthma, uncomplicated; R74.0 Nonspecific elevation of levels of transaminase and lactic acid dehydrogenase [LDH]; H53.50 Unspecified color vision deficiencies; Y90.0 Blood alcohol level of less than 20 mg/100 ml; Z68.1 Body mass index [BMI] 19.9 or less, adult; Z71.41 Alcohol abuse counseling and surveillance of alcoholic; Z79.899 Other long term (current) drug therapy; Z71.6 Tobacco abuse counseling
CPT/HCPCS: 36600; 43235; 97110-GP; 97116-GP; 97530-GP; C9113; G0378; G0480; J0171; J1200; J1610; J2060; J2250; J2310; J2354; J2405; J2765; J3010; J3430; J3475; J3490; J7030; J7042; J7050; J7613; J7644; P9016; P9035; Q0092

== ENCOUNTER 2019-03-05 18:07 | Inpatient (IN) | payer OTHER ==
[~2019-03-05] VITALS: Ht 172.7 cm; Wt 83.5 kg
[~2019-03-05 18:07] MED LIST changes: +FERROUS SULFAT325 M2 PO
[2019-03-05 18:28] VITALS: Ht 172.7 cm; Wt 83.5 kg
[2019-03-05 20:20] LABS: BASOPHIL % 0.4 % (0-2)
[2019-03-05 20:29] LABS: PLATELET COUNT 54 x10^3mcL (130-400); RED CELL DISTRIBUTION WIDTH 15.1 % (11.5-14.5)
[2019-03-05 20:35] LABS: CALCIUM 8.3 mg/dL (8.5-10.1); CARBON DIOXIDE 25.7 mmol/L (21-32); CHLORIDE SERUM 105 mmol/L (98-107); CREATININE SERUM 0.8 mg/dL (0.7-1.3); GFR1 > 60 mL/min; GLUCOSE SERUM 87 mg/dL (74-106); POTASSIUM SERUM 4.2 mmol/L (3.5-5.1); SODIUM SERUM 139 mmol/L (136-145)
[2019-03-05 20:39] LABS: ALKALINE PHOSPHATASE 84 U/L (46-116); ALT/SGPT 22 U/L (16-63); AST/SGOT 49 U/L (15-37); BILIRUBIN TOTAL 1.5 mg/dL (0.20-1.00)
[2019-03-05 20:42] LABS: ALBUMIN 2.4 g/dL (3.4-5.0); AMYLASE 1199 U/L (25-115); TOTAL PROTEIN, SERUM 8.5 g/dL (6.4-8.2)
[2019-03-05 20:55] LABS: LIPASE 10685 IU/L (73-393)
[2019-03-05 23:57] LABS: MAGNESIUM 1.1 mg/dL (1.8-2.4); PHOSPHOROUS 4.4 mg/dL (2.5-4.9)
[2019-03-05 23:58] LABS: CHOLESTEROL/HDL RATIO 5.4
[2019-03-06] VITALS (7 sets, daily range): BP systolic 115–135; BP diastolic 70–87
[2019-03-06 00:06] LABS: FREE T4 0.93 ng/dL (0.76-1.46); FREE THYROXINE INDEX 1.8 ug/dL (1.4-4.5)
[2019-03-06 00:54] LABS: T3 TOTAL 0.77 ng/mL
[2019-03-06 06:49] LABS: microscopic required? NO
[2019-03-06 07:11] LABS: ALKALINE PHOSPHATASE 76 U/L (46-116); ALT/SGPT 22 U/L (16-63); AST/SGOT 48 U/L (15-37); BILIRUBIN TOTAL 2.44 mg/dL (0.20-1.00); CALCIUM 7.8 mg/dL (8.5-10.1); CHLORIDE SERUM 109 mmol/L (98-107); CREATININE SERUM 0.8 mg/dL (0.7-1.3); GFR1 > 60 mL/min; GLUCOSE SERUM 86 mg/dL (74-106); MAGNESIUM 1.7 mg/dL (1.8-2.4); PHOSPHOROUS 4.4 mg/dL (2.5-4.9); POTASSIUM SERUM 4.1 mmol/L (3.5-5.1); SODIUM SERUM 144 mmol/L (136-145); TOTAL PROTEIN, SERUM 7.6 g/dL (6.4-8.2)
[2019-03-06 07:31] LABS: ALBUMIN 2.2 g/dL (3.4-5.0)
[2019-03-06 07:31] LABS: AMPHETAMINE QUAL UR NONE DETECTED (See below)
[2019-03-06 07:32] LABS: LIPASE 7211 IU/L (73-393)
[2019-03-06 07:36] LABS: BASOPHIL % 0.2 % (0-2); PLATELET COUNT 40 x10^3mcL (130-400)
[2019-03-06 07:43] LABS: UA SPECIFIC GRAVITY 1.025 (1.005-1.035); urine erythrocyte NEGATIVE (NEGATIVE)
[2019-03-07 05:12] VITALS: BP 127/77
[2019-03-07 06:22] LABS: BASOPHIL % 0.3 % (0-2)
[2019-03-07 06:54] LABS: CALCIUM 7.5 mg/dL (8.5-10.1); CARBON DIOXIDE 23.3 mmol/L (21-32); CHLORIDE SERUM 104 mmol/L (98-107); CREATININE SERUM 0.9 mg/dL (0.7-1.3); GFR1 > 60 mL/min; GLUCOSE SERUM 65 mg/dL (74-106); MAGNESIUM 1.5 mg/dL (1.8-2.4); PHOSPHOROUS 3.1 mg/dL (2.5-4.9); POTASSIUM SERUM 3.5 mmol/L (3.5-5.1); SODIUM SERUM 135 mmol/L (136-145)
[2019-03-07 07:20] LABS: RED CELL DISTRIBUTION WIDTH 15.1 % (11.5-14.5)
[2019-03-07 07:22] VITALS: BP 122/79
[2019-03-07 09:40] LABS: BILIRUBIN DIRECT 0.86 mg/dL (0.0-0.2); BILIRUBIN TOTAL 1.84 mg/dL (0.20-1.00); TOTAL PROTEIN, SERUM 6.8 g/dL (6.4-8.2)
[2019-03-07 10:52] LABS: PLATELET COUNT 29 x10^3mcL (130-400)
[2019-03-07 11:09] VITALS: BP 131/84
[2019-03-07 15:19] VITALS: BP 131/84
[2019-03-07 16:03] VITALS: BP 133/82
[2019-03-07 19:11] VITALS: BP 117/77
[2019-03-08 03:59] VITALS: BP 136/79
[2019-03-08 07:56] LABS: BASOPHIL % 0.6 % (0-2)
[2019-03-08 07:58] LABS: PLATELET COUNT 36 x10^3mcL (130-400); RED CELL DISTRIBUTION WIDTH 14.9 % (11.5-14.5)
[2019-03-08 08:03] VITALS: BP 141/95
[2019-03-08 08:03] LABS: CALCIUM 7.5 mg/dL (8.5-10.1); CARBON DIOXIDE 24.9 mmol/L (21-32); CHLORIDE SERUM 109 mmol/L (98-107); CREATININE SERUM 0.9 mg/dL (0.7-1.3); GFR1 > 60 mL/min; GLUCOSE SERUM 89 mg/dL (74-106); LIPASE 658 IU/L (73-393); SODIUM SERUM 142 mmol/L (136-145)
== END 2019-03-08 09:47 | disposition left against medical advice (07) | DRG 282 ==
LOC: ED 18:07 → DU 22:13
PROVIDERS: Emergency Medicine; Surgery; ADMIT Family Medicine
DX: K85.20 Alcohol induced acute pancreatitis without necrosis or infection (principal); E43 Unspecified severe protein-calorie malnutrition; J45.909 Unspecified asthma, uncomplicated; E83.51 Hypocalcemia; F10.229 Alcohol dependence with intoxication, unspecified; Y90.9 Presence of alcohol in blood, level not specified; Z68.28 Body mass index [BMI] 28.0-28.9, adult; K86.2 Cyst of pancreas; Z53.29 Procedure and treatment not carried out because of patient's decision for other reasons
CPT/HCPCS: 84439; 97116-GP; G0378; G0480; J2060; J2270; J2405; J2543; J3430; J3475; J7030; Q9967

== ENCOUNTER 2019-09-15 13:23 | Inpatient (IN) | payer OTHER ==
[~2019-09-15] VITALS: Ht 175.3 cm; Wt 77.1 kg
[2019-09-15 13:37] VITALS: Ht 175.3 cm; Wt 77.1 kg
--- NOTE | 2019-09-15 13:44 | NUR ---
PT BIBA [facility] C/O ALOC. EMS STS FAMILY FOUND [place] WITH SLURRED SPEECH X2HRS AGO. PT STS HE DRANK "7 BEERS LAST NIGHT." PT AAOX4, WITH SLURRED SPEECH AND UNABLE TO STAND ON HIS OWN. BED RAILS UP AND WILL CONT TO MONITOR
[2019-09-15 14:18] LABS: RED CELL DISTRIBUTION WIDTH 23.9 % (11.5-14.5)
[2019-09-15 14:20] LABS: PLATELET COUNT 20 x10^3mcL (130-400)
--- NOTE | 2019-09-15 14:20 | NUR ---
PER MD, GIVE MAG DRIP OVER 20MINS
[2019-09-15 14:40] LABS: BAND NEUTROPHIL 0 % (0-10); BASOPHIL 0 % (0-2); MONOCYTE 7 % (0-7); SEGMENTED NEUTROPHILS 75 % (37-75)
[2019-09-15 14:41] LABS: CALCIUM 7.6 mg/dL (8.5-10.1); CARBON DIOXIDE 18.4 mmol/L (21-32); CHLORIDE SERUM 104 mmol/L (98-107); CREATININE SERUM 1.7 mg/dL (0.7-1.3); GFR1 47 mL/min; GLUCOSE SERUM 108 mg/dL (74-106); POTASSIUM SERUM 3.1 mmol/L (3.5-5.1); SODIUM SERUM 142 mmol/L (136-145)
[2019-09-15 14:42] LABS: rbc morphology (normal/abnorm) ABNORMAL (NORMAL); target cell (codocyte) 2+
[2019-09-15 14:46] LABS: ALKALINE PHOSPHATASE 50 U/L (46-116); ALT/SGPT 38 U/L (16-63); AST/SGOT 87 U/L (15-37); BILIRUBIN TOTAL 3.48 mg/dL (0.20-1.00); TOTAL PROTEIN, SERUM 7.9 g/dL (6.4-8.2)
[2019-09-15 14:47] LABS: ALBUMIN 2.6 g/dL (3.4-5.0)
--- NOTE | 2019-09-15 15:17 | NUR ---
CALLED PHARMACY FOR MISSING THERAGRAN IN [place]
--- NOTE | 2019-09-15 16:08 | NUR ---
PT LEFT FOR CT VIA RNEY
--- NOTE | 2019-09-15 16:18 | NUR ---
PT BACK FROM CT.
--- NOTE | 2019-09-15 16:36 | NUR ---
MD BARBA AT BEDSIDE FOR ASSESSMENT. PT UNABLE TO STAND BY HIMSELF. WILL BE ADMITTING FOR PHYSICAL THERAPY.
--- NOTE | 2019-09-15 16:42 | NUR ---
SPOKE TO BROTHER , FRANCES , WHO CALLED FOR AN UPDATE
--- NOTE | 2019-09-15 17:02 | NUR ---
INFORMED BROTHER THAT PT WILL BE ADMITTED
--- NOTE | 2019-09-15 18:08 | NUR ---
PT STATE HE IS UNABLE TO URINATE AT THIS TIME
[2019-09-15 18:16] LABS: MAGNESIUM 1.3 mg/dL (1.8-2.4); PHOSPHOROUS 2.2 mg/dL (2.5-4.9)
[2019-09-15 18:21] LABS: T3 TOTAL 0.97 ng/mL
[2019-09-15 18:29] LABS: CHOLESTEROL/HDL RATIO 6.3; FREE THYROXINE INDEX 1.7 ug/dL (1.4-4.5); T4(THYROXINE) 4.4 ug/dL (4.7-13.3)
--- NOTE | 2019-09-15 18:49 | NUR ---
EDUCATED PT ON USING THE URINAL FOR URINE SAMPLE. PT ATTEMPTING TO URINATE AT THIS TIME AT BEDSIDE
--- NOTE | 2019-09-15 18:52 | NUR ---
IV SALINE LOCK ATTEMPTED BY MYSELF, MICHAEL, AND CHET WITHOUT SUCCESS. WILL NOTIFY DR PHILLIPS
--- NOTE | 2019-09-15 19:19 | NUR ---
RECEIVED PT REPORT FROM STEVEN HORTON. I WILL NOW ASSUME PRIMARY CARE OF THE PT
--- NOTE | 2019-09-15 20:47 | NUR ---
PT FOUND LAYING AT THE END OF ED GURNEY. PT IS IN NO APPARENT DISTRESS AND REPORTS " I SLID DOWN THE GURNEY". PT REPOSITIONED TO POSITION OF COMFORT. NO ACD NOTED
--- NOTE | 2019-09-15 20:57 | NUR ---
PT REPORT GIVEN TO SHARATH HORTON WHO WILL ASSUME PRIMARY CARE OF THE PT
--- NOTE | 2019-09-15 21:14 | NUR ---
PT TAKEN UPSTAIRS VIA CHELSEY SCHULER BY MYSELF AND EMT MILANA. NO INCIDENCE NOTED DURING TRANSPORT
[2019-09-15 21:16] LABS: UA SPECIFIC GRAVITY 1.025 (1.005-1.035); microscopic required? YES; urine erythrocyte 1+ (NEGATIVE)
--- NOTE | 2019-09-15 21:20 | NUR ---
PT RECEIVED FROM ED VIA GURNEY ACCOMPANIED BY ED NURSE. PT A/O X2-3, ABLE TO MAKE NEEDS KNOWN AND FOLLOW SIMPLE COMMANDS, GARBLED SPEECH AND SLOW RESPONSE NOTED. TELE #8, NSR, PT DENIES ANY CP/PRESSURE. PULSES PALPABLE, NO EDEMA PRESENT. BREATHING IS EVEN AND UNLABORED ON RA, NO RESP DISTRESS NOTED. ABD SOFT AND NONDISTENDED, DENIES ANY N/V. VOIDS FREELY, URINAL AT BEDSIDE. GENERALIZED WEAKNESS. PT DENIES HAVING ANY PAIN AT THIS TIME. IV TO LH, PATENT AND INTACT. PT REPORTS LAST DRINK OF ALCOHOL WAS LAST NIGHT. ORIENTED PT ROOM AND CALL LIGHT. NO ACUTE DISTRESS NOTED. BED IN LOWEST SETTING, SIDE RAILS UP X2, CALL LIGHT WITHIN REACH. WILL CONT TO MONITOR.
[2019-09-15 21:30] LABS: AMPHETAMINE QUAL UR NONE DETECTED (See below)
--- NOTE | 2019-09-15 21:51 | NUR ---
RECEIVED PATIENT IN BED, EYES CLOSED. AROUSABLE NO PAIN AND NO DISTRESS NOTED. TELE #8 NSR WITH HR 84 NOTED, IV TO LH INTACT AND SL, NO INFILTRATION NOTED. INTERVIEW PT; NOT ANWSERING QUESTION, STATE "I DON'T KNOW." ORIENTED TO CALL LIGHT AND WITHIN REACH. SHARATH I RN RESUME CARE.
[2019-09-15 21:55] VITALS: BP 127/80
--- NOTE | 2019-09-15 23:40 | NUR ---
RECEIVED CRITICAL LAB: LACTIC ACID-2.9, DR. LUONG MADE AWARE. NO NEW ORDERS RECEIVED.
[2019-09-16 05:41] VITALS: BP 126/87
--- NOTE | 2019-09-16 05:57 | NUR ---
PT SLEPT WELL THROUGHOUT THE EVENING. BREATHING IS EVEN AND UNLABORED, NO RESP DISTRESS NOTED. PT DENIES HAVING ANY PAIN AT THIS TIME. IVF INFUSING WELL TO LH, INTACT. NO ACUTE CHANGES ENCOUNTERED DURING SHIFT. ALL NEEDS MET AND ANTICIPATED. CALL LIGHT WITHIN REACH. WILL ENDORSE CARE TO AM NURSE.
[2019-09-16 06:53] LABS: BASOPHIL % 0.4 % (0-2)
--- NOTE | 2019-09-16 07:10 | NUR ---
RECEIVED PT FROM EMELI RN. PT IS STABLE AT THIS TIME. PT AAOX3. PT ORIENTED TO TIME, PLACE, AND SELF. PT HAS PERIODS OF CONFUSION, SLOW, GARBLED SPEECH. PT ON TELE #8. DENIES CHEST PAIN. PT ON RA NO SOB OR DISTRESS. PT HAS IV TO LH W/ NS 100 CC/HR. PT IS STABLE W/ NO DISTRESS NOTED. ALL SAFETY AND COMFORT MEASURES IN PLACE. BED IN LOW POSITION, 2 SIDE RAILS UP. CALL LIGHT WITH IN REACH. ALL QUESTIONS AND CONCERNS ADDRESSED. WILL CONTINUE TO MONITOR PT.
[2019-09-16 07:50] LABS: RED CELL DISTRIBUTION WIDTH 23.7 % (11.5-14.5)
[2019-09-16 08:16] LABS: CALCIUM 7.4 mg/dL (8.5-10.1); CARBON DIOXIDE 25.5 mmol/L (21-32); CHLORIDE SERUM 105 mmol/L (98-107); CREATININE SERUM 0.8 mg/dL (0.7-1.3); GFR1 > 60 mL/min; GLUCOSE SERUM 68 mg/dL (74-106); MAGNESIUM 1.8 mg/dL (1.8-2.4); POTASSIUM SERUM 3.7 mmol/L (3.5-5.1); SODIUM SERUM 141 mmol/L (136-145)
--- NOTE | 2019-09-16 08:25 | NUR ---
CONDUIT BENDER SHARMILA MADE AWARE OF PLT 23. AWAITING ORDERS. ALL QUESTIONS AND CONCERNS ADDRESSED. ALL NEEDS MET AT THIS TIME. WILL CONTINUE TO MONITOR PT.
[2019-09-16 09:00] VITALS: BP 132/83
--- NOTE | 2019-09-16 10:15 | NUR ---
DR TERESA NOTIFIED ABOUT PLT 23. NO FURTHER ORDERS RECEIVED. WILL CONTINUE TO MONITOR PT.
[2019-09-16 11:15] LABS: ALBUMIN 2.5 g/dL (3.4-5.0); BILIRUBIN DIRECT 1.37 mg/dL (0.0-0.2); TOTAL PROTEIN, SERUM 7.7 g/dL (6.4-8.2)
[2019-09-16 11:19] LABS: rbc morphology (normal/abnorm) ABNORMAL (NORMAL)
[2019-09-16 11:23] LABS: PLATELET COUNT 23 x10^3mcL (130-400)
[2019-09-16 13:17] VITALS: BP 119/88
[2019-09-16 15:42] VITALS: BP 119/88
--- NOTE | 2019-09-16 17:45 | NUR ---
PT GIVEN DC INSTRUCTIONS. PT VERBALIZED UNDERSTANDING OF DC INSTRUCTIONS. PT STATED BROTHER WOULD PICK HIM UP. PT DC IN STABLE CONDITION. IV CATHETER DC AND INTACT. DRESSING APPLIED. TELE MONITOR REMOVED AND RETURNED TO STATION. ID BANDS REMOVED. ALL QUESTIONS AND CONCERNS ADDRESSED. ALL NEEDS MET. PT ACCOMPANIED DOWNSTAIRS BY SUBSTATION OPERATOR HELPER VIA WHEELCHAIR.
== END 2019-09-16 17:00 | disposition home or self-care (01) | DRG 52 ==
LOC: ED 13:23 → DU 17:16 → EDBEDREQ 17:19 → DU 21:15
PROVIDERS: Emergency Medicine; ADMIT Internal Medicine; ATTEND Internal Medicine
DX: G92 Toxic encephalopathy (principal); N17.0 Acute kidney failure with tubular necrosis; E43 Unspecified severe protein-calorie malnutrition; D69.6 Thrombocytopenia, unspecified; E83.51 Hypocalcemia; E83.42 Hypomagnesemia; K70.30 Alcoholic cirrhosis of liver without ascites; D64.9 Anemia, unspecified; R55 Syncope and collapse; F10.239 Alcohol dependence with withdrawal, unspecified; F10.229 Alcohol dependence with intoxication, unspecified; Y90.0 Blood alcohol level of less than 20 mg/100 ml; Z79.899 Other long term (current) drug therapy
CPT/HCPCS: 83880; 84439; G0378; G0480; J2060; J3411; J3475; J3480; J7030; Q0092